=== PATIENT | female | born 1930 | race Caucasian/White ===

== ENCOUNTER 2016-06-02 18:31 | Observation (INO) | payer MEDICARE ==
[~2016-06-02] VITALS: Ht 170.2 cm; Wt 65.0 kg
[~2016-06-02 18:31] MED LIST: ANAS1TAB PO; ASPI325T PO; LABE100T2 PO; SYNT88TA PO; VITA100T5 PO
[2016-06-02 18:33] VITALS: BP 188/80; PULSE 115; RESP 16; TEMP 98.2; O2SAT 97
[2016-06-02] MEDS ORDERED: GABA300C5 PO (19:15)
[2016-06-02] MEDS ORDERED: ZETI10TA5 PO (19:18)
[2016-06-02] MEDS ORDERED: CHEL50TA PO (19:18)
[2016-06-02] MEDS ORDERED: MAGN200T PO (19:18)
[2016-06-02] MEDS ORDERED: UBIQ100C PO (19:18)
[2016-06-02] MEDS ORDERED: MENA1TAB PO (19:18)
--- NOTE | 2016-06-02 19:21 | PD ---
HPI Chief Complaint: Chest Pain Time Seen by Provider: 19:04 Travel History International Travel<30 days: No Contact w/Intl Traveler<30days: No Traveled to known affect area: No History of Present Illness HPI The patient was seen and examined in the presence of the nurse. She complains of chest pain. He's had 3 spells of a sternal area discomfort today. It lasted around 10 minutes and resolved. There were not exertional. Occurred in the center sternum and radiated toward the throat. Currently pain-free. Denies history of cardiac disease. She says she was in the works of planning an outpatient stress test but hasn't happened yet. Denies shortness of breath or fever. Severity was moderate. No alleviating factors. Duration one day PFSH Past Medical History Hx Anticoagulant Therapy: Yes (325 MG ASA ) Asthma: No Blood Disorders: No Heart Rhythm Problems: Yes (A-FIB) Cancer: Yes (S/P BREAST CA , BILAT MASTECTOMY) Cardiovascular Problems: Yes (PVCs) Chemotherapy: Yes (bilateral breast CA ) Chest Pain: No Congestive Heart Failure: No COPD: No Diabetes: No Diminished Hearing: No Endocrine: Yes GERD: Yes Genitourinary: No Hepatitis: No Hiatal Hernia: No Hypertension: Yes Immune Disorder: No Musculoskeletal: Yes (pain at hips, knees) Neurologic: No Psychiatric: No Reproductive: No Respiratory: No Immunizations Current: Yes Radiation Therapy: Yes (1995, 1999) Sleep Apnea: No Thyroid Disease: Yes (HYPO) Menopausal: Yes Past Surgical History AICD: No Endocrine Surgery: No Hysterectomy: No Joint Replacement: No Mastectomy: Yes (bilat) Neurologic Surgery: No Pacemaker: No Thoracic Surgery: Yes (breast surg w/ l. lumpectomy) Tonsillectomy: Yes Other Surgery: Yes (BREAST LUMPECTOMY) Social History Alcohol Use: No Tobacco Use: No Substance Use: No Allergies-Medications (Allergen,Severity, Reaction): Coded Allergies: Adhesives (Unverified Allergy, Severe, 06/02/16) blisters (Verified Allergy, Mild, rash, 06/02/16) Horse Serum Proteins (Verified Allergy, Mild, RASH, 06/02/16) Tizanidine (Verified Allergy, Mild, lazaro, 06/02/16) Phenobarbital (Verified Allergy, Unknown, rash, 06/02/16) NICHO Inhibitors (Unverified Adverse Reaction, Severe, Cough, 06/02/16) Hctz (Unverified Adverse Reaction, Severe, cough, 06/02/16) Buspar (Verified Adverse Reaction, Unknown, Irritability/Anxiety, 06/02/16) Celebrex (Verified Adverse Reaction, Unknown, 06/02/16) Pravachol (Verified Adverse Reaction, Unknown, myalgias, 06/02/16) Simvastatin (Verified Adverse Reaction, Unknown, myalgias, 06/02/16) Trazodone (Verified Adverse Reaction, Unknown, lazaro, 06/02/16) Reported Meds & Prescriptions Reported Meds & Active Scripts Active Reported Zetia (Ezetimibe) 10 Mg Tab 10 Mg PO DAILY Vitamin K2 (Menaquinone-7) 40 Mcg Tab 40 Mg PO DAILY Zinc (Zinc Gluconate) 50 Mg Tab 50 Mg PO DAILY Magnesium 200 Mg Tab 200 Mg PO DAILY Ubiquinol 100 Mg Cap 100 Mg PO DAILY\ Gabapentin 300 Mg Cap 300 Mg PO QHS Anastrozole 1 Mg Tab 1 Mg PO DAILY Vitamin C (Ascorbic Acid) 100 Mg Tab 100 Mg PO Synthroid (Levothyroxine Sodium) 88 Mcg Tab 88 Mcg PO DAILY Labetalol (Labetalol HCl) 100 Mg Tab 100 Mg PO BID Aspirin 325 Mg Tab 325 Mg PO DAILY Review of Systems General / Constitutional: No: Fever Eyes: No: Visual changes HENT: No: Headaches Cardiovascular: Positive: Chest Pain or Discomfort Respiratory: No: Shortness of Breath Gastrointestinal: No: Abdominal Pain Genitourinary: No: Dysuria Musculoskeletal: No: Pain Skin: No Rash Neurologic: No: Weakness Psychiatric: No: Depression Endocrine: No: Polydipsia Hematologic/Lymphatic: No: Easy Bruising Physical Exam Narrative GENERAL: Well-nourished, well-developed patient in no apparent distress. SKIN: Warm and dry. HEAD: Atraumatic. Normocephalic. EYES: Pupils equal and round. No scleral icterus. No injection or drainage. ENT: No nasal bleeding or discharge. Mucous membranes pink and moist. NECK: Trachea midline. No JVD. CARDIOVASCULAR: Regular rate and rhythm. No murmur appreciated. RESPIRATORY: No accessory muscle use. Clear to auscultation. Breath sounds equal bilaterally. GASTROINTESTINAL: Abdomen soft, non-tender, nondistended. Hepatic and splenic margins not palpable. MUSCULOSKELETAL: No obvious deformities. No clubbing. No cyanosis. No edema. NEUROLOGICAL: Awake and alert. No obvious cranial nerve deficits. Motor grossly within normal limits. Normal speech. PSYCHIATRIC: Appropriate mood and affect; insight and judgment normal. Data Data Last Documented VS Vital Signs Date Time Temp Pulse Resp B/P Pulse Ox O2 Delivery O2 Flow Rate FiO2 06/02/16 19:30 99 Room Air 06/02/16 19:30 76 18 177/81 06/02/16 18:33 98.2 Orders Electrocardiogram (06/02/16 ) Basic Metabolic Panel (Bmp) (06/02/16 19:17) Ckmb (Isoenzyme) Profile (06/02/16 19:17) Complete Blood Count With Diff (06/02/16 19:17) Prothrombin Time / Inr (Pt) (06/02/16:17) Act Partial Throm Time (Ptt) (06/02/16 19:17) Troponin I (06/02/16 19:17) Chest, Single Ap (06/02/16 19:17) Ecg Monitoring (06/02/16 19:17) Iv Access Insert/Monitor (06/02/16 19:17) Oximetry (06/02/16 19:17) Sodium Chloride 0.9% Flush (Ns Flush) (06/02/16 19:30) Admit Order (Ed Use Only) (06/02/16 20:36) Labs Laboratory Tests Test 06/02/16 19:25 White Blood Count 5.5 TH/MM3 Red Blood Count 4.03 MIL/MM3 Hemoglobin 12.4 GM/DL Hematocrit 36.9 % Mean Corpuscular Volume 91.6 FL Mean Corpuscular Hemoglobin 30.8 PG Mean Corpuscular Hemoglobin 33.7 % Concent Red Cell Distribution Width 13.7 % Platelet Count 158 TH/MM3 Mean Platelet Volume 9.3 FL Neutrophils (%) (Auto) 57.3 % Lymphocytes (%) (Auto) 29.6 % Monocytes (%) (Auto) 9.8 % Eosinophils (%) (Auto) 2.5 % Basophils (%) (Auto) 0.8 % Neutrophils # (Auto) 3.2 TH/MM3 Lymphocytes # (Auto) 1.6 TH/MM3 Monocytes # (Auto) 0.5 TH/MM3 Eosinophils # (Auto) 0.1 TH/MM3 Basophils # (Auto) 0.0 TH/MM3 CBC Comment DIFF FINAL Differential Comment Prothrombin Time 10.6 SEC Prothromb Time International 1.0 RATIO Ratio Activated Partial 25.7 SEC Thromboplast Time MDM Medical Decision Making Medical Screen Exam Complete: Yes Emergency Medical Condition: Yes Medical Record Reviewed: Yes Differential Diagnosis Differential diagnosis includes OR, angina, pericarditis, pleurisy, GERD, anxiety. Narrative Course I have reviewed the patient's electronic medical record. IV placed I reviewed the EKG which shows sinus rhythm and no acute ST elevation. Ectopy noted I reviewed the chest x-ray which is negative Extended cardiac monitoring shows sinus rhythm with occasional ectopic beat CBC is normal Metabolic profile, CK, troponin have just been recollected and will be another hour. Assuming they come back normal and they will be checked, I'm planning to place her as a 23 hour observation in the chest pain center to rule out cardiac cause of her symptoms. Had aspirin prior to arrival Diagnosis Primary Impression: Chest pain in adult Admitting Information Admitting Physician Requests: Observation Fidel Pak MD Jun 02, 2016 19:21
[2016-06-02 19:30] VITALS: BP 177/81; PULSE 76; RESP 18; O2SAT 99
[2016-06-02] MEDS ORDERED: SODIUM CHLORIDE 0.9% FLUSH 5 ML FLUSH IVF PRN ×2 (19:30→20:45)
--- NOTE | 2016-06-02 19:40 | RADRPT ---
EXAM DATE/TIME: 06/02/2016 19:16 [facility] COMPARISON: No previous studies available for comparison. INDICATIONS : Chest pain and shortness of breath. MEDICAL HISTORY : Hypertension. SURGICAL HISTORY : None. ENCOUNTER: Initial ACUITY: 1 day PAIN SCORE: 5/10 LOCATION: middle chest. FINDINGS: A single view of the chest demonstrates the lungs to be symmetrically aerated without evidence of mas s, infiltrate or effusion. The cardiomediastinal contours are unremarkable. Osseous structures are intact. CONCLUSION: No evidence of acute cardiopulmonary disease. Barrett Barnett MD on June 02, 2016 at 19:38 Board Certified Radiologist. This report was verified electronically.
[2016-06-02 19:44] LABS: AUTOMATED NEUTROPHIL # 3.2 TH/MM3 (1.8-7.7); BASOPHIL % 0.8 % (0.0-2.0); EOSINOPHIL # 0.1 TH/MM3 (0-0.4); EOSINOPHIL % 2.5 % (0.0-4.0); HEMATOCRIT 36.9 % (35.0-46.0); HEMO FLAGS DIFF FINAL; LYMPH % 29.6 % (9.0-44.0); LYMPHOCYTE # 1.6 TH/MM3 (1.0-4.8); MEAN CELL VOLUME 91.6 FL (80.0-100.0); MEAN CORPUSCULAR HEMOGLOBIN 30.8 PG (27.0-34.0); MEAN CORPUSCULAR HGB CONC 33.7 % (32.0-36.0); MONO % 9.8 % (0.0-8.0); NEUT % 57.3 % (16.0-70.0); PLATELET COUNT 158 TH/MM3 (150-450); RED BLOOD COUNT 4.03 MIL/MM3 (4.00-5.30); RED CELL DISTRIBUTION WIDTH 13.7 % (11.6-17.2); WHITE BLOOD COUNT 5.5 TH/MM3 (4.0-11.0)
[2016-06-02 19:57] LABS: APTT (PATIENT) 25.7 SEC (24.3-30.1); PROTHROMBIN TIME - PATIENT 10.6 SEC (9.8-11.6)
[2016-06-02] MEDS ORDERED: ONDANSETRON HCL 4 MG/2 ML VIAL IV PRN (20:45)
[2016-06-02] MEDS: SODIUM CHLORIDE 0.9% FLUSH 5 ML FLUSH IVF SCH (21:00)
[2016-06-02] MEDS: LABETALOL HCL 100 MG TAB PO SCH (21:00)
[2016-06-02 21:11] VITALS: O2SAT 98
[2016-06-02 22:04] VITALS: BP 158/70; PULSE 71; RESP 18
[2016-06-02 22:37] LABS: ANION GAP 8 MEQ/L (5-15); BICARBONATE 27.5 MEQ/L (21.0-32.0); BLOOD UREA NITROGEN 11 MG/DL (7-18); CHLORIDE 108 MEQ/L (98-107); GLOMERULAR FILTRATION RATE 57 ML/MIN (>89); SODIUM (NA) 143 MEQ/L (136-145)
[2016-06-02 22:41] LABS: CREATINE KINASE 70 U/L (26-192); POTASSIUM 3.9 MEQ/L (3.5-5.1)
[2016-06-02 23:00] VITALS: PULSE 72
[2016-06-03 00:01] VITALS: BP 161/62; PULSE 73; RESP 18; TEMP 98; O2SAT 98
[2016-06-03 01:46] LABS: CREATINE KINASE 68 U/L (26-192)
[2016-06-03 03:42] VITALS: PULSE 70
[2016-06-03 04:24] VITALS: BP 153/59; PULSE 76; RESP 18; TEMP 98.7; O2SAT 98
[2016-06-03 08:00] VITALS: BP 155/65; PULSE 73; RESP 17; TEMP 97.3; O2SAT 96
[2016-06-03] MEDS: SODIUM CHLORIDE 0.9% FLUSH 5 ML FLUSH IVF SCH (09:00)
[2016-06-03] MEDS ORDERED: ASPIRIN 325 MG TAB PO SCH (09:00)
[2016-06-03] MEDS: LABETALOL HCL 100 MG TAB PO SCH (11:41)
--- NOTE | 2016-06-03 11:45 | RADRPT ---
EXAM DATE/TIME: 06/03/2016 09:46 [facility] COMPARISON: No previous studies available for comparison. INDICATIONS : Substernal chest pain radiating to the throat. Angina DOSE: 25.8 mCi Tc99m Myoview at stress 8.4 mCi Tc99m Myoview at rest REST HEART RATE: 90 BPM TARGET HEART RATE: 116 BPM MAX HEART RATE: 116 BPM REST BLOOD PRESSURE: 138/70 mmHg MAX BLOOD PRESSURE: 190/64 mmHg EJECTION FRACTION: > 70% MEDICAL HISTORY : Hypertension. Gastroesophageal reflux disease. Carcinoma, breast. SURGICAL HISTORY : Mastectomy, bilateral. Tonsillectomy. ENCOUNTER: Initial ACUITY: 1 day PAIN SCALE: 6/10 LOCATION: Substernal chest TECHNIQUE: The patient underwent upright treadmill exercise in the chest pain center. Continuous ECG tracing wa s monitored during stress. Gated SPECT imaging was performed after stress, and conventional SPECT im aging was performed at rest. The examination was performed on a SPECT/CT scanner, both attenuation-c orrected and non-corrected datasets were reviewed. FINDINGS: DISTRIBUTION: The maximum perfused segment at stress is in the septal wall. PERFUSION STUDY: The pattern of perfusion at stress is within normal limits. GATED STUDY: There is intact wall motion and thickening without hypokinetic or dyskinetic segments. CONCLUSION: 1. Unremarkable myocardial perfusion scan. RISK CATEGORY: Low (<1% Annual Mortality Rate) Art Parker MD on June 03, 2016 at 11:43 Board Certified Radiologist. This report was verified electronically.
[2016-06-03 12:03] VITALS: BP 159/60; PULSE 75; RESP 18; TEMP 98.5; O2SAT 97
--- NOTE | 2016-06-03 12:15 | HHI.DCPOC ---
Discharge Care Plan Diagnosis: (1) Atypical chest pain Goals to Promote Your Health * To prevent worsening of your condition and complications * To maintain your health at the optimal level Directions to Meet Your Goals Take your medications as prescribed Follow your dietary instruction Follow activity as directed Keep your appointments as scheduled Take your immunizations and boosters as scheduled If your symptoms worsen call your PCP, if no PCP go to Urgent Care Center or Emergency Room Smoking is Dangerous to Your Health. Avoid second hand smoke Call the 24-hour hour crisis hotline for domestic abuse at Aliya David Jun 03, 2016 12:14
--- NOTE | 2016-06-03 14:20 | MH ---
cc: YONATHAN REICH MD DATE OF ADMISSION: 06/02/2016 CHIEF COMPLAINT Chest pain HISTORY OF PRESENT ILLNESS This is an 85 year-old patient who presented to the emergency room with an onset of chest pain last evening described as tightness and pain in her substernal area that radiated to her bilateral jaws. The severity was a 6/10, duration was 30 minutes. No associated symptoms. No known precipitating factors or relieving factors. The patient stated after her chest discomfort, she developed heart pounding and felt as though her heart rate was irregular for approximately six hours. The patient says over the past few months, she has had a total of five episodes of this chest tightness and then six hours of irregular heart beat. She follows with Dr. Grace and has been waiting to be scheduled for an outpatient stress test. PAST MEDICAL HISTORY Includes: 1. Atrial fibrillation. This is during her chemotherapy treatments. 2. She has had breast cancer. 3. GERD 4. Hypertension 5. Hypothyroidism 6. Radiation in 1995 and in 1999 PAST SURGICAL HISTORY Bilateral mastectomy SOCIAL HISTORY She is . Lifelong non-smoker. Denies any alcohol or illegal drug use and is very active. PAST CARDIAC TESTING She has not had any recent cardiac testing. 03/31/15, she had an exercise stress test that was negative for ischemia and ejection fraction greater than 70%. She does follow with Dr. Grace and actually seen him on May 24 and has been waiting for an outpatient stress test. ALLERGIES SHE HAS MULTIPLE ALLERGIES INCLUDING NICHO INHIBITORS, BUSPAR, CELEBREX, HYDROCHLOROTHIAZIDE, , PRAVACHOL, SIMVASTATIN, TRAZODONE. CURRENT MEDICATIONS Include: 1. Gabapentin 300 mg q.h.s. 2. Labetalol 100 mg twice a day 3. Zetia 10 mg daily 4. Aspirin 325 mg daily 5. Magnesium 200 mg daily 6. Ubiquinol 100 mg daily 7. Zinc 50 mg daily 8. Levothyroxine 88 mcg daily 9. Vitamin C 100 mg daily 10. Anastrazole 1 mg daily REVIEW OF SYSTEMS GENERAL: She has been in her general state of health with no recent illness, fevers chills or recent travel. HEAD, EYES, EARS, NOSE, AND THROAT: No headache or dysphagia. CARDIOVASCULAR: As stated above. No intermittent leg pain or dizziness. RESPIRATORY: No shortness of breath, cough, wheeze, hemoptysis or recent upper respiratory infection. ABDOMEN: No bowel changes, diarrhea, constipation, pain, distention, blood in the stool, dark stool, nausea or vomiting. Reports a good appetite. : No dysuria. EXTREMITIES: No lower leg edema. MUSCULOSKELETAL: No change in ROM. NEUROLOGIC: No difficulties with balance, motor or sensory deficits. PSYCH: No anxiety or depression. She states she had some situational stress, her had some recent medical issues. PHYSICAL EXAM VITAL SIGNS: Temperature is 98.5, pulse 75, respiratory rate 18, blood pressure 159/60, pulse oximetry 97% on room air. GENERAL: She is alert, well-developed, well-nourished in no acute distress pleasant female who appears younger than her stated age. HEAD, EYES, EARS, NOSE, AND THROAT: Head is normocephalic, atraumatic. Eyes, pupils are equal and round. sclerae is clear. ENT, mucous membranes are pink and moist. NECK: Supple. Trachea is midline. CARDIOVASCULAR: She has a regular rate and rhythm without murmur, rub or gallop. No JVD. S1, S2. No S3. No S4. She does have bilateral carotid bruits. RESPIRATORY: Clear lungs throughout bilaterally with no crackles, wheezes or rhonchi, nonlabored. Speaking in full sentences. Symmetrical chest rise. ABDOMEN: Soft, nontender and nondistended with positive bowel tones. EXTREMITIES: Pulses +2 times four. There is no dependent edema appreciated. NEUROLOGIC: CN II through XII grossly intact. Strength 5/5. Gait is within normal limits. PSYCH: She is alert and oriented times three with a pleasant affect, appropriate mood, insight and judgment. SKIN: Normal turgor, normal texture, warm and dry. LABORATORY DATA CBC is unremarkable. Chemistries also unremarkable. Three sets of cardiac enzymes are negative. Coagulation is unremarkable. Chest x-ray read by the radiologist has a conclusion of no evidence of acute cardiopulmonary disease. Three EKG's show a normal sinus rhythm with a left axis deviation. ASSESSMENT AND PLAN 1. Chest pain. The patient has been admitted to the chest pain center and was ruled out with three sets of EKG's, cardiac Enzymes and was seen and evaluated by Dr. Yonathan Reich. Dr. Sin Mayfield who is covering for Dr. Grace has been notified of patient's arrival and agrees to completing a nuclear stress test while in the chest pain center. Naturally if her stress test is unremarkable, she will be encouraged to follow up with her cnc service technician, Dr. Grace and her primary care physician, Dr. Nolan. She is agreeable to this plan of care. 2. Situational stress. With this patient, the likelihood is she is experiencing situational stress. She may want to speak with Dr. Nolan regarding this as it could be a cause of her intermittent chest pain and intermittent high blood pressure as she knows when these chest pains begin. Dictated by OSMANY Middleton Per Shukla /12:38 PM /2:18 PM
--- NOTE | 2016-06-03 15:57 | TR ---
Date Performed: 06/03/2016 Time Performed: 10:42:04 DOCTOR: Sola Domínguez DRUG LIST: CLINICAL HISTORY: REASON FOR TEST: REASON FOR ENDING: OBSERVATION: CONCLUSION: Hiren protocol completed. Stopped sec to reaching target heart rate and leg fatigue. Maximum OG=333 Target HR Achieved=85.0 Total Exercise Time=3:32 Max bp 190/64. No reprod chest pain/ discomfort. Occassional PVC. Hypertensive bp response. Recovery quick and unremarkable. Nuclear image s pending. COMMENTS:
--- NOTE | 2016-06-03 15:59 | EKG ---
Date Performed: 06/03/2016 Time Performed: 01:24:05 PTAGE: 85 years EKG: Sinus rhythm BORDERLINE LEFT AXIS DEVIATION LEFT VENTRICULAR HYPERTROPHY AND ST-T CHANGE ABNORMAL ECG Since PREVIOUS TRACING , no significant change noted PREVIOUS TRACIN06/02/2016 22.09 DOCTOR: Sola Domínguez Interpretating Date/Time 06/03/2016 15:58:37
--- NOTE | 2016-06-03 16:01 | EKG ---
Date Performed: 06/02/2016 Time Performed: 22:09:38 PTAGE: 85 years EKG: Sinus rhythm BORDERLINE LEFT AXIS DEVIATION MODERATE VOLTAGE CRITERIA FOR LVH, CONSIDER NORMAL VARIANT NONSPECIFI C ST & T-WAVE ABNORMALITY BORDERLINE ECG Since PREVIOUS TRACING , no significant change noted PREVIOUS TRACIN06/02/2016 19.05 DOCTOR: Sola Domínguez Interpretating Date/Time 06/03/2016 15:59:51
--- NOTE | 2016-06-03 16:02 | EKG ---
Date Performed: 06/02/2016 Time Performed: 19:05:17 PTAGE: 85 years EKG: Sinus rhythm WITH OCCASIONAL ECTOPIC PREMATURE COMPLEXES POSSIBLE LEFT ATRIAL ENLARGEMENT INCOMPLETE RIGHT BUNDLE BRANCH BLOCK POSSIBLE LEFT VENTRICULAR HYPERTROPHY POSSIBLE SEPTAL MYOCARDIAL INFARCTION ABNORMAL EC G Since PREVIOUS TRACING , no significant change noted PREVIOUS TRACIN05/06/2016 11.23 DOCTOR: Sola Domínguez Interpretating Date/Time 06/03/2016 16:01:24
== END 2016-06-03 14:47 | disposition home or self-care (01) ==
LOC: NEPA 18:31 → NEDA 20:37 → NEPGCP 23:23
PROVIDERS: ADMIT Internal Medicine Interventional Cardiology; ATTEND Internal Medicine Interventional Cardiology
DX: R07.9 Chest pain, unspecified (principal); Z79.82 Long term (current) use of aspirin; I48.91 Unspecified atrial fibrillation; Z85.3 Personal history of malignant neoplasm of breast; Z90.13 Acquired absence of bilateral breasts and nipples; I49.3 Ventricular premature depolarization; K21.9 Gastro-esophageal reflux disease without esophagitis; I10 Essential (primary) hypertension; Z79.899 Other long term (current) drug therapy; E03.9 Hypothyroidism, unspecified; Z92.3 Personal history of irradiation
CPT/HCPCS: 71010; 78452; 80048; 82550; 84484; 85025; 85610; 85730; 93005; 93017; 99285; A9502; G0378

== ENCOUNTER 2016-06-13 06:26 | Day surgery (SDC) | payer MEDICARE ==
[~2016-06-13] VITALS: Ht 167.6 cm; Wt 62.1 kg
[~2016-06-13 06:26] MED LIST changes: +CHEL50TA PO; +GABA300C5 PO; +MAGN200T PO; +MENA1TAB PO; +UBIQ100C PO; +ZETI10TA5 PO
[2016-06-13 07:37] VITALS: BP 190/92; PULSE 69; RESP 18; TEMP 97.7; O2SAT 100
[2016-06-13] MEDS ORDERED: CYCL1TAB29 PO (07:37)
[2016-06-13] MEDS ORDERED: CALC500T35 PO (07:37)
[2016-06-13] MEDS ORDERED: VITA400T PO (07:37)
[2016-06-13] MEDS ORDERED: HYDR-3580 PO (07:37)
[2016-06-13] MEDS ORDERED: DICY10CA12 PO (07:37)
[2016-06-13] MEDS ORDERED: COEN400C PO (07:37)
[2016-06-13] MEDS ORDERED: VITATAB11 PO (07:37)
[2016-06-13] MEDS ORDERED: IODIXANOL 320 MG/ML 100 ML VIAL (for Cath Lab) OTHER ONE (08:08)
[2016-06-13] MEDS ORDERED: MIDAZOLAM HCL 2 MG/2 ML VIAL ONE (08:19)
[2016-06-13] MEDS ORDERED: HEPARIN-NS/PF INJ 500 ML ONE ×2 (08:19→09:06)
[2016-06-13] MEDS ORDERED: HEPARIN SODIUM - IV 10,000 UNITS/10 ML VIAL ONE (08:52)
[2016-06-13] MEDS ORDERED: CLOPIDOGREL 300 MG TAB ONE (09:10)
[2016-06-13] MEDS ORDERED: ASPIRIN 81 MG CHEW TAB ONE (09:37)
[2016-06-13] MEDS ORDERED: ASPIRIN 81 MG CHEW TAB PO ONE (11:15)
--- NOTE | 2016-06-13 12:28 | MA ---
cc: TITO SALAS MD DATE: 06/13/2016 PROCEDURE Cardiac catheterization. PROCEDURAL STATEMENTS The patient was prepped and draped in the usual fashion. A 6 sheath was inserted percutaneously in the right femoral artery. Coronary angiography was done with Christina preformed catheters. Left ventriculography was not done. RESULTS HEMODYNAMICS Aortic pressure was 160/60. ANGIOGRAPHY The left main coronary was normal. The left anterior descending artery was very small and diffusely diseased throughout its course. There was an area of discrete narrowing of approximately 70-75% in the proximal portion. This artery, however, was very small and appeared to be less than 2 mm in caliber. The left circumflex artery arose from left main and gave off one large obtuse marginal branch. There were no significant stenoses noted. The right coronary was anatomically dominant. A 75% stenosis was present in the midportion of the artery with a second 95% stenosis just proximal to the crux. The distal portion of the right coronary was free from disease. INTERVENTION It was felt that the right coronary was the likely culprit lesion and it was felt that the anterior descending artery was probably too small to properly intervene on. An FR4 guide was positioned in place in the right coronary after heparin administration with an ACT of 280 seconds. A Chef wire was advanced to the distal right coronary. Primary stenting of the distal lesion was carried out with a 3.0 x 8 mm bare metal stent to 12 atmospheres. This resulted in a good cosmetic result with 0 residual. KYLE-III flow was present pre and post procedure. The catheter was withdrawn. A second 3.0 x 8 mm bare metal stent was positioned across the 75% stenosis again dilated to 12 atmospheres again with an excellent cosmetic result. KYLE-III flow was present pre and post procedure with zero residual. The equipment was then withdrawn and hemostasis was achieved with Angio-Seal technique. The patient left the laboratory in good condition. CONCLUSIONS It is anticipated that if she continues to have angina, consideration for angioplasty of the LAD could be given; however, it does appear to be a very small artery and hopefully medical therapy will be adequate to control the patient's symptoms. MD MAREK Zambrano/JERRICA /9:32 AM /12:18 PM
== END 2016-06-13 14:14 | disposition home or self-care (01) ==
LOC: HDIC 06:26 → HDOC 06:26
PROVIDERS: ATTEND Internal Medicine Cardiovascular Disease
DX: I25.110 Atherosclerotic heart disease of native coronary artery with unstable angina pectoris (principal); I48.91 Unspecified atrial fibrillation; I10 Essential (primary) hypertension; E78.5 Hyperlipidemia, unspecified; Z79.82 Long term (current) use of aspirin
CPT/HCPCS: 85002; 92928; 93454; C1769; C1876; C1887; C1893; J1644; J2250; Q9967

== ENCOUNTER → 2016-12-12 | Outpatient (CLI) | payer MEDICARE ==
[~2016-12-12] VITALS: Ht 167.6 cm; Wt 62.4 kg
[~2016-12-12] MED LIST changes: +ASCO500T PO; +ASPI81CH CHEW; +CALC500T35 PO; +CHLORHEXIDINE GLUCONATE 2 % 1 PACK (2 CLOTHS) TOPICAL PRN; +COEN400C PO; +CYCL1TAB29 PO; +DICY10CA12 PO; +HYDR-3580 PO; +INSULIN HUMAN REGULAR 1,000 UNITS/10 ML VIAL SQ PRN; +LACTATED RINGER'S 1000 ML IV PRN; +LEVO100T5 PO; +LORA-520 PO; -MENA1TAB PO; +METOPROLOL TARTRATE 25 MG TAB PO PRN; +PLAV75TA29 PO; +POVIDONE IODINE 5% (ANTISEPSIS KIT) 4 APPLICATIONS EACH NARE PRN; +PROP225T PO; +PROPOFOL 200 MG/20 ML AMP IV ONE; +RANI150T PO; +SODIUM CHLORID 0.9% 500 ML IV PRN; -UBIQ100C PO; +VITA1000 PO; +VITA400T PO; +VITATAB11 PO
[2016-12-12 09:00] LABS: AUTOMATED NEUTROPHIL # 2.5 TH/MM3 (1.8-7.7); BASOPHIL % 1.2 % (0.0-2.0); EOSINOPHIL # 0.1 TH/MM3 (0-0.4); EOSINOPHIL % 2.9 % (0.0-4.0); HEMATOCRIT 28.7 % (35.0-46.0); HEMO FLAGS DIFF FINAL; LYMPH % 22.8 % (9.0-44.0); LYMPHOCYTE # 0.9 TH/MM3 (1.0-4.8); MEAN CELL VOLUME 88.5 FL (80.0-100.0); MEAN CORPUSCULAR HGB CONC 31.6 % (32.0-36.0); MONO % 10.5 % (0.0-8.0); NEUT % 62.6 % (16.0-70.0); PLATELET COUNT 222 TH/MM3 (150-450); RED BLOOD COUNT 3.25 MIL/MM3 (4.00-5.30); RED CELL DISTRIBUTION WIDTH 15.7 % (11.6-17.2)
[2016-12-12 09:15] VITALS: BP 132/58; PULSE 78; RESP 20; TEMP 98.1; O2SAT 98
[2016-12-12 11:57] VITALS: TEMP 97.8
--- NOTE | 2016-12-12 11:59 | GIPROC ---
[facility] [address] [facility]. [facility], [address] COLONOSCOPY PROCEDURE REPORT EXAM DATE: 12/12/2016 PATIENT NAME: Melanie Franklin MR #: [id number] BIRTHDATE: 1930 ENDOSCOPIST: Gabi Isaac MD ORDER #: [id number] ACCOUNT GROUP SUPERVISOR: Janey Martínez and Jany Jordan STATUS: outpatient INDICATIONS: The patient is a 86 yr old female here for a colonoscopy due to anemia, gi bleeding PROCEDURE PERFORMED: Colonoscopy, diagnostic MEDICATIONS: None and Per Anesthesia. PREP QUALITY: fair PREP TYPE:Other: ESTIMATED BLOOD LOSS: None CONSENT: The patient understands the risks and benefits of the procedure and understands that these risks include, but are not limited to: sedation, allergic reaction, infection, perforation and/or bleeding. Alternative means of evaluation and treatment include, among others: physical exam, x-rays, and/or surgical intervention. The patient elects to proceed with this endoscopic procedure. medical equipment was checked for proper function. Hand hygiene and appropriate measures for infection prevention was taken. After the risks, benefits and alternatives of the procedure were thoroughly explained, Informed consent was verified, confirmed and timeout was successfully executed by the treatment team. A digital exam revealed external hemorrhoids The Pentax EC-[id number] endoscope was introduced through the anus and advanced to the cecum, which was identified by both the appendix and ileocecal valve. The instrument was then slowly withdrawn as the colon was fully examined. COLON FINDINGS: Diverticulosis internal, externnal hemorrhoids. Retroflexed views revealed internal hemorrhoids and Retroflexed views revealed medium internal hemorrhoids The scope was then completely withdrawn from the patient and the procedure terminated. PROCEDURE WITHDRAWAL TIME:6minutes ADVERSE EVENTS: There were no complications. IMPRESSIONS: 1. Diverticulosis internal, externnal hemorrhoids 2. Retroflexed views revealed internal hemorrhoids 3. Retroflexed views revealed medium internal hemorrhoids 4. Revealed external hemorrhoids RECOMMENDATIONS: 1. Benefiber 2 tsp daily 2. Probiotics from any [employer] or health food store 3. Yearly rectal exams 4. High fiber diet 5. Proctozone cream capsule endoscopy RECALL: 1. NONE 2. Return 5 years Colonoscopy Gabi Isaac MD eSigned: Gabi Isaac MD 12/12/2016 11:58 AM cc: Matteo Nolan M.D.
--- NOTE | 2016-12-12 12:01 | GIPROC ---
[facility] [address] [facility]. [facility], [address] EGD PROCEDURE REPORT EXAM DATE: 12/12/2016 PATIENT NAME: Melanie Franklin MR #: [id number] BIRTHDATE: 1930 ATTENDING: Gabi Isaac MD ORDER #: [id number] [employer] LANG[employer]AGE INTERPRETER: Janey Martínez and Jany Jordan STATUS: outpatient INDICATIONS: The patient is a 86 yr old female here for an EGD due to anemia , melena PROCEDURE PERFORMED: EGD w/ biopsy MEDICATIONS: None and Per Anesthesia. TOPICAL ANESTHETIC: none CONSENT: The patient understands the risks and benefits of the procedure and understands that these risks include, but are not limited to: sedation, allergic reaction, infection, perforation and/or bleeding. Alternative means of evaluation and treatment include, among others: physical exam, x-rays, and/or surgical intervention. The patient elects to proceed with this endoscopic procedure. medical equipment was checked for proper function. Hand hygiene and appropriate measures for infection prevention was taken. After the risks, benefits and alternatives of the procedure were thoroughly explained, Informed consent was verified, confirmed and timeout was successfully executed by the treatment team. The patient was anesthetized with topical anesthesia and the EC-[id number] (Pedi C) endoscope was introduced through the mouth and advanced to the second portion of the duodenum. Retroflexed views revealed a hiatal hernia The gastroscope was then slowly withdrawn and removed. Gastritis antrum-biopsy. ADVERSE EVENTS: There were no complications. IMPRESSIONS: 1. Gastritis antrum-biopsy 2. Retroflexed views revealed a hiatal hernia RECOMMENDATIONS: 1. Await biopsy results. Biopsy results will not be ready for 7-10 days. If you don't hear from us in two weeks, call our office for biopsy results. 2. Anti-reflux regimen 3. Ppi capsule endoscopy cbc in 3 days 4. Await biopsy results. Biopsy results will not be ready for 7-10 days. If you don't hear from us in two weeks, call our office for biopsy results. 5. Anti-reflux regimen 6. Continue PPI PATIENT CONDITION: stable DISPOSITION: Inpatient REPEAT EXAM: EGD pending biopsy results Gabi Isaac MD eSigned: Gabi Isaac MD 12/12/2016 12:01 PM cc: Matteo Nolan M.D. PATIENT NAME: Melanie Franklin MR#: [id number]
[2016-12-12 12:16] VITALS: BP 131/59; PULSE 79; RESP 18; O2SAT 95
--- NOTE | 2016-12-12 15:41 | EKG ---
Date Performed: 12/12/2016 Time Performed: 09:33:03 PTAGE: 86 years EKG: Sinus rhythm MINIMAL VOLTAGE CRITERIA FOR LVH, CONSIDER NORMAL VARIANT ST DEVIATION AND MODERATE T-WAVE ABNORMALI TY, CONSIDER LATERAL ISCHEMIA ABNORMAL ECG PREVIOUS TRACING : 06/03/2016 01.24 Compared to previous tracing, lateral ST changes are more p rominent, consider ischemia. DOCTOR: Trenton Beckett Interpretating Date/Time 12/12/2016 15:41:26
== END ==
LOC: HEND 07:52
PROVIDERS: ATTEND Internal Medicine Gastroenterology
DX: D64.9 Anemia, unspecified (principal); K57.90 Diverticulosis of intestine, part unspecified, without perforation or abscess without bleeding; K64.4 Residual hemorrhoidal skin tags; K64.8 Other hemorrhoids; K92.1 Melena; K44.9 Diaphragmatic hernia without obstruction or gangrene; K29.70 Gastritis, unspecified, without bleeding; R94.31 Abnormal electrocardiogram [ECG] [EKG]
CPT/HCPCS: 85025; 86850; 86900; 86901; 88305; 88312; 93005

== ENCOUNTER 2017-12-24 20:11 | Inpatient (IN) ==
--- NOTE | 2017-12-24 20:44 | ED ---
HPI General Chief Complaint: Syncope Stated Complaint: weakness/evac Time Seen by Provider: 12/24/17 20:20 Source: patient Mode of arrival: EMS Limitations: no limitations History of Present Illness HPI narrative: The patient is an 87 year old female who presents to the [facility] emergency department with a history of reportedly having dizziness that began approximately 45 minutes prior to ambulance services being called out to her home. The patient had a witnessed episode of a few seconds of syncope while ambulance services were at her side and she was on a monitor. Initially they reported that when they arrived she was in a sinus rhythm in the 80s. They have a strip to confirm this. The patient reports that she does have a history of paroxysmal atrial fibrillation and was actually an RVR earlier today. Her advanced research programs director is Dr. Schwartz. She reports that 2 weeks ago she was started on a new medication, sotalol. While she continued to be monitored by ambulance services the patient was noted to go into A. fib with RVR with a heart rate that maxed out at 136, quickly thereafter the patient became bradycardic and had a syncopal event that lasted for a few seconds. The patient had no loss of bowel or bladder control. The patient had no tongue biting or generalized clonic tonic seizure activity. The patient was placed flat by ambulance services and pacer pads were applied. The patient was started on normal saline IV fluids and given in total approximately 360 mL of normal saline. The patient's blood sugar was noted to be 122 prior to arrival. The patient arrives awake and alert. She denies having any known recent fevers. She denies having any cough or congestion. She denies having any chest pain, chest pressure, or shortness of breath. She reports that since yesterday she has had some new lower extremity edema that improves with elevating her legs. Otherwise on review of systems, she denies having any neck pain, abdominal pain, vomiting, diarrhea, urinary symptoms, one-sided weakness, facial droop, difficulty with word finding ability, vertigo, or vision changes. Related Data Home Medications Medication Instructions Recorded Confirmed amlodipine 5 mg PO DAILY 12/24/17 12/25/17 anastrozole 1 mg PO DAILY 12/24/17 12/25/17 magnesium mg PO DAILY 12/24/17 rivaroxaban [Xarelto] 20 mg PO DAILY 12/24/17 12/25/17 sotalol PO Q12H 12/24/17 Zinc Plus 12/25/17 12/25/17 ezetimibe [Zetia] PO DAILY 12/25/17 thyroid (pork) [[place]ina Thyroid] 60 mg PO DAILY 12/25/17 12/25/17 Allergies Allergy/AdvReac Type Severity Reaction Status Date / Time adhesive Allergy Severe JITTERY Unverified 12/24/17 20:29 amlodipine Allergy Severe JITTERY Unverified 12/24/17 20:29 atorvastatin Allergy Severe JITTERY Unverified 12/24/17 20:29 diltiazem Allergy Severe JITTERY Unverified 12/24/17 20:29 isradipine Allergy Severe JITTERY Unverified 12/24/17 20:29 nicardipine Allergy Severe JITTERY Unverified 12/24/17 20:29 nifedipine Allergy Severe JITTERY Unverified 12/24/17 20:29 nimodipine Allergy Severe JITTERY Unverified 12/24/17 20:29 verapamil Allergy Severe JITTERY Unverified 12/24/17 20:29 bupropion Allergy Intermediate JITTERY Unverified 12/24/17 20:29 atropine Allergy Mild rash Unverified 12/24/17 20:29 Horse/Equine Containing Allergy Mild RASH Unverified 12/24/17 20:29 Products hyoscyamine Allergy Mild rash Unverified 12/24/17 20:29 scopolamine Allergy Mild rash Unverified 12/24/17 20:29 tizanidine Allergy Mild lazaro Unverified 12/24/17 20:29 phenobarbital Allergy Unknown rash Unverified 12/24/17 20:29 benazepril AdvReac Severe Cough Unverified 12/24/17 20:29 captopril AdvReac Severe Cough Unverified 12/24/17 20:29 enalaprilat AdvReac Severe Cough Unverified 12/24/17 20:29 fosinopril AdvReac Severe Cough Unverified 12/24/17 20:29 hydrochlorothiazide AdvReac Severe cough Unverified 12/24/17 20:29 lisinopril AdvReac Severe Cough Unverified 12/24/17 20:29 quinapril AdvReac Severe Cough Unverified 12/24/17 20:29 buspirone AdvReac Unknown Irritabilit Unverified 12/24/17 20:29 y/Anxiety celecoxib AdvReac Unknown JITTERY Unverified 12/24/17 20:29 pravastatin AdvReac Unknown myalgias Unverified 12/24/17 20:29 simvastatin AdvReac Unknown myalgias Unverified 12/24/17 20:29 trazodone AdvReac Unknown lazaro Unverified 12/24/17 20:29 BELLADONNA ALKALOIDS Allergy Severe JITTERY Uncoded 12/24/17 20:29 Review of Systems ROS: all other systems reviewed are negative (Except for that which was mentioned in HPI) [facility] Medical History Medical History A-fib (Acute) Breast CA (Acute) High cholesterol (Acute) Hypertension (Acute) Hypothyroid (Acute) Surgical History Surgical History H/O bilateral mastectomy (Acute) Hx of tonsillectomy (Acute) Social History Social History Substance History: No History of Abuse Second Hand Smoke Exposure: No Smoking Status: Former smoker How Often Do You Have a Drink Containing Alcohol: Never Immunization History Tetanus Immunization: Unsure Hx Influenza Vaccine This Season: No Exam Const General: cooperative, no acute distress, well developed and in distress Nutritional Appearance: well nourished Orientation: alert, awake and oriented x3 HENMT Head: normocephalic and atraumatic Nose: no nasal discharge and no epistaxis Mouth: moist mucous membranes Throat: posterior oropharynx normal and uvula midline Eyes Sclera: normal sclerae Pupils: PERRL Neck Neck: no meningeal signs, trachea midline and no JVD Resp Effort & Inspection: no use of accessory muscles Auscultation: clear to auscultation bilaterally Cardio Rate: regular rate Rhythm: regular rhythm Heart Sounds: no murmurs GI Inspection: non-distended Palpation: soft, no hepatosplenomegaly and nontender Auscultation: normal bowel sounds Back/Spine/Pelvis Back: no CVA tenderness Skin General: dry skin (warm) Neuro General: alert, awake and oriented x3 Cranial Nerves: other Speech: speech normal Motor: strength 5/5 throughout and no movement abnormalities noted Sensory Exam: no sensory deficits noted Extrem General: normal to inspection (No calf tenderness on palpation. Negative Homans sign. No palpable cords. 2+ pulses in all 4 extremities.), no clubbing , no cyanosis and edema (Trace pedal edema bilaterally.) Laterality: bilaterally Psych Mood: congruent mood Affect: normal affect Judgment: judgment good Course Consultations Consultation #1: The patient's case including history, pertinent physical examination findings, and laboratory studies were discussed with Dr. Carter. It was agreed that the patient would be admitted to the [facility] hospitalist service. Initial Documented Vital Signs Temperature 98.7 F 12/24/17 20:16 Pulse Rate 78 12/24/17 20:16 Respiratory Rate 16 12/24/17 20:16 Blood Pressure 194/80 H 12/24/17 20:16 Pulse Oximetry 100 12/24/17 20:16 Last Documented Vital Signs Temperature 98.4 F 12/26/17 02:05 Pulse Rate 82 12/26/17 03:00 Respiratory Rate 18 12/26/17 02:05 Blood Pressure 136/54 L 12/26/17 02:05 Pulse Oximetry 97 12/26/17 02:05 Medical Decision Making MDM Narrative Medical decision making narrative: During the course of the patient's emergency department visit, the patient's history, examination, and differential diagnosis were reviewed with the patient. The patient was placed on a cardiac monitor technician with oximetry and frequent blood pressure monitoring. The patient had IV access obtained and blood work sent for analysis. Diagnostic evaluation was started regarding this patient's irregular heartbeat including syncope with witnessed bradycardia. The patient's diagnostic evaluation is remarkable for a white count of 9.4, platelets 269, monocytes 13.8, hemoglobin 12.The patient's PT is 14.3, INR 1.4, PTT 38.3. Chemistry is remarkable for a troponin I of less than 0.02, GFR of 57 , chloride of 108, BNP is 164. Magnesium is 2. The patient's chest x-ray revealed no acute abnormality. The patient has remained stable during her emergency department evaluation. The patient will be admitted to the hospital for syncope with symptomatic bradycardia. The patient's results were discussed with the patient, including the plan of care. I explained that further testing and/ or monitoring is indicated based on the patient's history, examination, and/ or laboratory findings. Therefore, I recommended admission for additional evaluation. The patient expressed understanding and was agreeable with this plan. The patient was admitted to the hospital in guarded condition and sent to a bed under the care of [facility] hospitalist service. Differential Diagnosis Differential Diagnosis: Electrolyte derangements causing cardiac arrhythmia, versus sick sinus syndrome, versus heart block, versus acute coronary syndrome Medical Records Medical records reviewed: Yes I reviewed the patient's medical records. Lab Data Lab results reviewed: Yes I reviewed the patient's lab results. Result diagrams: 12/24/17 20:30 12/24/17 21:25 Lab Results 12/24/17 12/24/17 12/24/17 Range/Units 20:30 20:30 20:30 WBC 9.4 (4.0-11.0) th/mm3 RBC 3.89 L (4.00-5.30) mil/mm3 Hgb 12.0 (11.6-15.3) gm/dL Hct 36.6 (35.0-46.0) % MCV 93.9 (80.0-100.0) fL MCH 30.8 (27.0-34.0) pg MCHC 32.7 (32.0-36.0) % RDW 14.5 (11.6-17.2) % Plt Count 269 (150-450) th/mm3 MPV 9.9 (7.0-11.0) fL Prelim Diff (Auto) Slide review pending Neut % (Auto) 51.0 (16.0-70.0) % Lymph % (Auto) 30.9 (9.0-44.0) % [place] % (Auto) 13.8 H (0.0-8.0) % Eos % (Auto) 3.7 (0.0-4.0) % Baso % (Auto) 0.6 (0.0-2.0) % Neut # (Auto) 4.8 (1.8-7.7) th/mm3 Lymph # (Auto) 2.9 (1.0-4.8) th/mm3 [place] # (Auto) 1.3 H (0.0-0.9) th/mm3 Eos # (Auto) 0.4 (0.0-0.4) th/mm3 Baso # (Auto) 0.1 (0.0-0.2) th/mm3 WBC Differential . Diff Scan Auto diff confirmed Differential Comment . PT 14.3 H (9.8-11.6) sec INR 1.4 Ratio APTT 38.3 H (24.3-30.1) sec Sodium (136-145) meq/L Potassium (3.5-5.1) meq/L Chloride (98-107) meq/L Carbon Dioxide (21.0-32.0) meq/L Anion Gap (5-15) meq/L BUN (7-18) mg/dL Creatinine (0.50-1.00) mg/dL Estimated GFR (>89) mL/min Random Glucose (74-106) mg/dL Calcium (8.5-10.1) mg/dL Magnesium (1.5-2.5) mg/dL Total Bilirubin (0.2-1.0) mg/dL AST (15-37) U/L ALT (10-53) U/L Alkaline Phosphatase (45-117) U/L Total Creatine Kinase (26-192) U/L Troponin I (0.02-0.05) ng/mL B-Natriuretic Peptide 164 H (0-100) pg/mL Total Protein (6.4-8.2) g/dL Albumin (3.4-5.0) g/dL TSH (0.358-3.740) uIU/mL 12/24/17 Range/Units 21:25 WBC (4.0-11.0) th/mm3 RBC (4.00-5.30) mil/mm3 Hgb (11.6-15.3) gm/dL Hct (35.0-46.0) % MCV (80.0-100.0) fL MCH (27.0-34.0) pg MCHC (32.0-36.0) % RDW (11.6-17.2) % Plt Count (150-450) th/mm3 MPV (7.0-11.0) fL Prelim Diff (Auto) Neut % (Auto) (16.0-70.0) % Lymph % (Auto) (9.0-44.0) % [place] % (Auto) (0.0-8.0) % Eos % (Auto) (0.0-4.0) % Baso % (Auto) (0.0-2.0) % Neut # (Auto) (1.8-7.7) th/mm3 Lymph # (Auto) (1.0-4.8) th/mm3 [place] # (Auto) (0.0-0.9) th/mm3 Eos # (Auto) (0.0-0.4) th/mm3 Baso # (Auto) (0.0-0.2) th/mm3 WBC Differential Diff Scan Differential Comment PT (9.8-11.6) sec INR Ratio APTT (24.3-30.1) sec Sodium 143 (136-145) meq/L Potassium 3.9 (3.5-5.1) meq/L Chloride 108 H (98-107) meq/L Carbon Dioxide 27.0 (21.0-32.0) meq/L Anion Gap 8 (5-15) meq/L BUN 16 (7-18) mg/dL Creatinine 0.95 (0.50-1.00) mg/dL Estimated GFR 56 L (>89) mL/min Random Glucose 99 (74-106) mg/dL Calcium 8.8 (8.5-10.1) mg/dL Magnesium 2.0 (1.5-2.5) mg/dL Total Bilirubin 0.2 (0.2-1.0) mg/dL AST 22 (15-37) U/L ALT 22 (10-53) U/L Alkaline Phosphatase 64 (45-117) U/L Total Creatine Kinase 56 (26-192) U/L Troponin I Less than 0.02 L (0.02-0.05) ng/mL B-Natriuretic Peptide (0-100) pg/mL Total Protein 6.6 (6.4-8.2) g/dL Albumin 3.5 (3.4-5.0) g/dL TSH 3.570 (0.358-3.740) uIU/mL Imaging Data Radiologist's impression: Chest X-Ray 12/24/17 20:20 CONCLUSION: 1. No acute abnormality or significant interval change. ECG Data Attestation: I personally reviewed and interpreted this ECG as follows: Interpretation: The patient had a EKG done on arrival. The patient's EKG shows a sinus rhythm heart rate of 81, QRS duration is 90 ms, QTC [address] segment elevation is noted. T waves are inverted in V5, V6. Discharge Plan Discharge Disposition Patient Disposition: 30 Still Patient Discharge Details Diagnosis: Syncope, Bradycardia Physicians Team ED Provider: Serenity Hampton Primary Care Provider: Matteo Nolan Attending Provider: Gopi Fong Other Providers: Timothy Schwartz Discharge Interventions Interventions: ED Discharge Assessment Last Done: 12/25/17 00:19 Vital Signs Last Done: 12/25/17 09:00 Status ED Status: Left Department Discharge Information Discharge Date/Time: 12/25/17 00:21
--- NOTE | 2017-12-24 20:49 | XR ---
EXAM DATE: 12/24/2017 8:46 PM EDT AGE/SEX: 87 years / Female INDICATIONS: Chest pain. Passed out tonight. CLINICAL DATA: This is the patient's initial encounter. Patient reports that signs and symptoms have been present for 1 day and indicates a pain score of 0/10. MEDICAL/SURGICAL HISTORY: . Hypertension. Gastroesophageal reflux disease. Carcinoma, breast. . Mastectomy, bilateral. Tonsillectomy. [place] [facility] [place]. . FINDINGS: No new focal pleural or parenchymal opacities. The cardiomediastinal contours are unremarkable. Osse ous structures are intact. CONCLUSION: 1. No acute abnormality or significant interval change. Electronically signed by: Jaya Sheriff MD 12/24/2017 8:48 PM EDT
[2017-12-24 20:52] LABS: Baso # (Auto) 0.1 th/mm3 (0.0-0.2); Baso % (Auto) 0.6 % (0.0-2.0); Eos # (Auto) 0.4 th/mm3 (0.0-0.4); Eos % (Auto) 3.7 % (0.0-4.0); Hematocrit 36.6 % (35.0-46.0); Lymph # (Auto) 2.9 th/mm3 (1.0-4.8); Lymph % (Auto) 30.9 % (9.0-44.0); Mean Corpuscular HGB Conc 32.7 % (32.0-36.0); Mean Corpuscular Hemoglobin 30.8 pg (27.0-34.0); Mean Corpuscular Volume 93.9 fL (80.0-100.0); Mean Platelet Volume 9.9 fL (7.0-11.0); Mono # (Auto) 1.3 th/mm3 (0.0-0.9); Mono % (Auto) 13.8 % (0.0-8.0); Neut # (Auto) 4.8 th/mm3 (1.8-7.7); Platelet Count 269 th/mm3 (150-450); Red Blood Count 3.89 mil/mm3 (4.00-5.30); Red Cell Distribution Width 14.5 % (11.6-17.2); White Blood Count 9.4 th/mm3 (4.0-11.0)
[2017-12-24 21:02] LABS: Activated Partial Thrombo Time 38.3 sec (24.3-30.1); INR 1.4 Ratio; Prothrombin Time 14.3 sec (9.8-11.6)
[2017-12-24 21:58] LABS: Alanine Aminotransferase 22 U/L (10-53); Albumin 3.5 g/dL (3.4-5.0); Anion Gap 8 meq/L (5-15); Aspartate Aminotransferase 22 U/L (15-37); Blood Urea Nitrogen 16 mg/dL (7-18); Calcium 8.8 mg/dL (8.5-10.1); Chloride 108 meq/L (98-107); Glomerular Filtration Rate 56 mL/min (>89); Glucose,Random 99 mg/dL (74-106); Potassium 3.9 meq/L (3.5-5.1); Sodium 143 meq/L (136-145)
[2017-12-24 22:09] LABS: Alkaline Phosphatase 64 U/L (45-117); Total Protein 6.6 g/dL (6.4-8.2)
[2017-12-24 22:18] LABS: Creatine Kinase 56 U/L (26-192)
[2017-12-24] MEDS ORDERED: Bisacodyl 10 MG Supp RECTAL PRN (23:00)
[2017-12-24] MEDS ORDERED: Temazepam 15 MG Capsule PO PRN (23:00)
--- NOTE | 2017-12-24 23:16 | P.HP ---
History of Present Illness Service: [facility] hospitalist Primary Care Physician: Matteo Nolan MD, PhD Chief Complaint: EVAC-syncope History of Present Illness: The patient is an 87 year old female who presents to the [facility] emergency department with a history of reportedly having dizziness that began approximately 45 minutes prior to ambulance services being called out to her home. The patient had a witnessed episode of a few seconds of syncope while ambulance services were at her side and she was on a monitor. Initially they reported that when they arrived she was in a sinus rhythm in the 80s. They have a strip to confirm this. The patient reports that she does have a history of paroxysmal atrial fibrillation and was actually afib earlier today. Her brazer repair and salvage is Dr. Schwartz. She reports that 2 weeks ago she was started on a new medication, sotalol. While she continued to be monitored by ambulance services the patient was noted to go into A. fib with RVR with a heart rate that maxed out at 136, quickly thereafter the patient became bradycardic and had a syncopal event that lasted for a few seconds. The patient had no loss of bowel or bladder control. The patient had no tongue biting or generalized clonic tonic seizure activity. The patient was placed flat by ambulance services and pacer pads were applied. The patient was started on normal saline IV fluids and given in total approximately 360 mL of normal saline. The patient 's blood sugar was noted to be 122 prior to arrival. The patient arrives awake and alert. She denies having any known recent fevers. She denies having any cough or congestion. She denies having any chest pain, chest pressure, or shortness of breath. She reports that since yesterday she has had some new lower extremity edema that improves with elevating her legs. Otherwise on review of systems, she denies having any neck pain, abdominal pain, vomiting, diarrhea, urinary symptoms, one-sided weakness, facial droop, difficulty with word finding ability, vertigo, or vision changes. In ER had no futher changes on monitor ,will admit to cardiac unit labs are unremarkable,will consult cardiology ? SSS. - Diagnosis (1) Syncope (2) Bradycardia (3) Afib Inpatient Certification: I certify that the inpatient services were ordered in accordance with Medicare regulations governing the order. This includes certification that hospital inpatient services are reasonable and necessary and in the case of services not specified as inpatient-only under 42 CFR 419.22(n), that they are appropriately provided as inpatient services in accordance to with the 2-midnight benchmark under 43 CFR 412.3(e) Estimated Total Length of Stay (Days): 2 Plans for Post Hospital Care: Not yet determined Review of Systems All other systems reviewed negative except as stated in HPI PMFSH - History History Provided By: Patient - Medical History Medical History: Medical History (Last Reviewed 12/24/17 @ 20:43 by Serenity Hampton MD) A-fib Breast CA High cholesterol Hypertension Hypothyroid - Surgical History Surgical History: Surgical History (Last Reviewed 12/24/17 @ 20:43 by Serenity Hampton MD) H/O bilateral mastectomy Hx of tonsillectomy - Tobacco History Smoking Status: Former smoker - Alcohol History How Often Do You Have a Drink Containing Alcohol: Never - Substance Use History Substance History: No History of Abuse - Immunization History Tetanus Immunization: Unsure Hx Influenza Vaccine This Season: No Medications and Allergies Active Medications: Active Medications Acetaminophen (Tylenol) 650 mg PO Q4H PRN PRN Reason: Temp > 100.4 Al Hydroxide/Mg Hydroxide (Milk Of Magnesia Liq) 30 ml PO Q12H PRN PRN Reason: Mild Constipation Amlodipine Besylate (Norvasc) 5 mg PO DAILY ANA Anastrozole (Arimidex) 1 mg PO DAILY ANA Bisacodyl (Dulcolax Supp) 10 mg RECTAL DAILY PRN PRN Reason: SEVERE CONSITIPATION Lactulose (Lactulose Liq) 30 ml PO DAILY PRN PRN Reason: SEVERE CONSITIPATION Rivaroxaban (Xarelto) 20 mg PO DAILY [facility] Senna/Docusate Sodium (Day-Colace) 1 tab PO BID ANA Sennosides (Senokot) 17.2 mg PO Q12H PRN PRN Reason: Moderate Constipation Sodium Chloride (Ns Flush) 2 ml IV.FLUSH UNSCH PRN PRN Reason: FLUSH AFTER USING IV ACCESS Sodium Chloride (Ns Flush) 2 ml IV.FLUSH PRN PRN PRN Reason: FLUSH AFTER USING IV ACCESS Temazepam (Restoril) 15 mg PO HS PRN PRN Reason: INSOMNIA Allergies Allergy/AdvReac Type Severity Reaction Status Date / Time adhesive Allergy Severe JITTERY Unverified 12/24/17 20:29 amlodipine Allergy Severe JITTERY Unverified 12/24/17 20:29 atorvastatin Allergy Severe JITTERY Unverified 12/24/17 20:29 diltiazem Allergy Severe JITTERY Unverified 12/24/17 20:29 isradipine Allergy Severe JITTERY Unverified 12/24/17 20:29 nicardipine Allergy Severe JITTERY Unverified 12/24/17 20:29 nifedipine Allergy Severe JITTERY Unverified 12/24/17 20:29 nimodipine Allergy Severe JITTERY Unverified 12/24/17 20:29 verapamil Allergy Severe JITTERY Unverified 12/24/17 20:29 bupropion Allergy Intermediate JITTERY Unverified 12/24/17 20:29 atropine Allergy Mild rash Unverified 12/24/17 20:29 Horse/Equine Containing Allergy Mild RASH Unverified 12/24/17 20:29 Products hyoscyamine Allergy Mild rash Unverified 12/24/17 20:29 scopolamine Allergy Mild rash Unverified 12/24/17 20:29 tizanidine Allergy Mild lazaro Unverified 12/24/17 20:29 phenobarbital Allergy Unknown rash Unverified 12/24/17 20:29 benazepril AdvReac Severe Cough Unverified 12/24/17 20:29 captopril AdvReac Severe Cough Unverified 12/24/17 20:29 enalaprilat AdvReac Severe Cough Unverified 12/24/17 20:29 fosinopril AdvReac Severe Cough Unverified 12/24/17 20:29 hydrochlorothiazide AdvReac Severe cough Unverified 12/24/17 20:29 lisinopril AdvReac Severe Cough Unverified 12/24/17 20:29 quinapril AdvReac Severe Cough Unverified 12/24/17 20:29 buspirone AdvReac Unknown Irritabilit Unverified 12/24/17 20:29 y/Anxiety celecoxib AdvReac Unknown JITTERY Unverified 12/24/17 20:29 pravastatin AdvReac Unknown myalgias Unverified 12/24/17 20:29 simvastatin AdvReac Unknown myalgias Unverified 12/24/17 20:29 trazodone AdvReac Unknown lazaro Unverified 12/24/17 20:29 BELLADONNA ALKALOIDS Allergy Severe JITTERY Uncoded 12/24/17 20:29 Home Medications Medication Instructions Recorded Confirmed Type Pocket Setter Lockstitch-90 PO DAILY 12/24/17 History Zedia PO DAILY 12/24/17 History amlodipine 5 mg PO DAILY 12/24/17 12/24/17 History anastrozole 1 mg PO DAILY 12/24/17 12/24/17 History magnesium mg PO DAILY 12/24/17 History rivaroxaban [Xarelto] 20 mg PO DAILY 12/24/17 12/24/17 History sotalol PO Q12H 12/24/17 History Exam Vital signs: Vital Signs 12/24/17 20:16 12/24/17 20:30 12/24/17 21:00 Temperature 98.7 F Pulse Rate 78 73 Respiratory Rate 16 16 Blood Pressure 194/80 H 158/71 H Pulse Oximetry 100 100 100 12/24/17 22:00 Temperature Pulse Rate 71 Respiratory Rate 16 Blood Pressure 144/67 H Pulse Oximetry 98 Intake & Output 12/24/17 12/24/17 12/25/17 06:59 18:59 06:59 Weight 63.503 kg Narrative: GENERAL: SKIN: Warm and dry. HEAD: Atraumatic. Normocephalic. EYES: Pupils equal and round. No scleral icterus. No injection or drainage. ENT: No nasal bleeding or discharge. Mucous membranes pink and moist. NECK: Trachea midline. No JVD. CARDIOVASCULAR: Regular rate and rhythm. RESPIRATORY: No accessory muscle use. Clear to auscultation. Breath sounds equal bilaterally. GASTROINTESTINAL: Abdomen soft, non-tender, nondistended. Hepatic and splenic margins not palpable. MUSCULOSKELETAL: Extremities without clubbing, cyanosis, or edema. No obvious deformities. NEUROLOGICAL: Awake and alert. No obvious cranial nerve deficits. Motor grossly within normal limits. Five out of 5 muscle strength in the arms and legs. Normal speech. PSYCHIATRIC: Appropriate mood and affect; insight and judgment normal. Results - Labs CBC & Chem 7: 12/24/17 20:30 12/24/17 21:25 Labs: Laboratory Results - last 24 hr 12/24/17 12/24/17 12/24/17 20:30 20:30 20:30 WBC 9.4 RBC 3.89 L Hgb 12.0 Hct 36.6 MCV 93.9 MCH 30.8 MCHC 32.7 RDW 14.5 Plt Count 269 MPV 9.9 Prelim Diff (Auto) Slide review pending Neut % (Auto) 51.0 Lymph % (Auto) 30.9 [place] % (Auto) 13.8 H Eos % (Auto) 3.7 Baso % (Auto) 0.6 Neut # (Auto) 4.8 Lymph # (Auto) 2.9 [place] # (Auto) 1.3 H Eos # (Auto) 0.4 Baso # (Auto) 0.1 WBC Differential . Diff Scan Auto diff confirmed Differential Comment . PT 14.3 H INR 1.4 APTT 38.3 H Sodium Potassium Chloride Carbon Dioxide Anion Gap BUN Creatinine Estimated GFR Random Glucose Calcium Magnesium Total Bilirubin AST ALT Alkaline Phosphatase Total Creatine Kinase Troponin I B-Natriuretic Peptide 164 H Total Protein Albumin TSH 12/24/17 21:25 WBC RBC Hgb Hct MCV MCH MCHC RDW Plt Count MPV Prelim Diff (Auto) Neut % (Auto) Lymph % (Auto) [place] % (Auto) Eos % (Auto) Baso % (Auto) Neut # (Auto) Lymph # (Auto) [place] # (Auto) Eos # (Auto) Baso # (Auto) WBC Differential Diff Scan Differential Comment PT INR APTT Sodium 143 Potassium 3.9 Chloride 108 H Carbon Dioxide 27.0 Anion Gap 8 BUN 16 Creatinine 0.95 Estimated GFR 56 L Random Glucose 99 Calcium 8.8 Magnesium 2.0 Total Bilirubin 0.2 AST 22 ALT 22 Alkaline Phosphatase 64 Total Creatine Kinase 56 Troponin I Less than 0.02 L B-Natriuretic Peptide Total Protein 6.6 Albumin 3.5 TSH 3.570 - Imaging Impressions Chest X-Ray 12/24/17 20:20 CONCLUSION: 1. No acute abnormality or significant interval change. - ECG Interpretation: no acute changes strip in evac significant bradycardia Caprini VTE Risk Assessment Caprini VTE Risk Assessment: Moderate/High Risk (score >= 2) Caprini Risk Assessment Model: Point Value = 1 Point Value = 2 Point Value = 3 Point Value = 5 Age 41-60 Minor surgery BMI > 25 kg/m2 Swollen legs Varicose veins or History of unexplained or recurrent spontaneous Oral contraceptives or hormone replacement Sepsis (< 1 month) Serious lung disease, including pneumonia (< 1 month) Abnormal pulmonary function Acute myocardial infarction Congestive heart failure (< 1 month) History of inflammatory bowel disease Medical patient at bed rest Age 61-74 Arthroscopic surgery Major open surgery (> 45 min) Laparoscopic surgery (> 45 min) Malignancy Confined to bed (> 72 hours) Immobilizing plaster cast Central venous access Age >= 75 History of VTE Family history of VTE Factor V Leiden Prothrombin [id number] Lupus anticoagulant Anticardiolipin antibodies Elevated serum homocysteine Heparin-induced thrombocytopenia Other congenital or acquired thrombophilia Stroke (< 1 month) Elective arthroplasty Hip, pelvis, or leg fracture Acute spinal cord injury (< 1 month) Prophylaxis Regimen: Total Risk Factor Score Risk Level Prophylaxis Regimen 0-1 Low Early ambulation 2 Moderate Order ONE of the following: *Sequential Compression Device (SCD) *Heparin 5000 units SQ BID 3-4 Higher Order ONE of the following medications: *Heparin 5000 units SQ TID *Enoxaparin/Lovenox 40 mg SQ daily (WT < 150 kg, CrCl > 30 mL/min) *Enoxaparin/Lovenox 30 mg SQ daily (WT < 150 kg, CrCl > 10-29 mL/min) *Enoxaparin/Lovenox 30 mg SQ BID (WT < 150 kg, CrCl > 30 mL/min) AND/OR *Sequential Compression Device (SCD) 5 or more Highest Order ONE of the following medications: *Heparin 5000 units SQ TID (Preferred with Epidurals) *Enoxaparin/Lovenox 40 mg SQ daily (WT < 150 kg, CrCl > 30 mL/min) *Enoxaparin/Lovenox 30 mg SQ daily (WT < 150 kg, CrCl > 10-29 mL/min) *Enoxaparin/Lovenox 30 mg SQ BID (WT < 150 kg, CrCl > 30 mL/min) AND *Sequential Compression Device (SCD) Assessment and Plan - Assessment (1) Syncope Code(s): R55 - Syncope and collapse Status: Acute Plan: related to significant bradycardia patient was started on sotalol will continue at lower dose pending cardiac evaluation. (2) Bradycardia Code(s): R00.1 - Bradycardia, unspecified Status: Acute Plan: as above cardiac consult (3) Afib Code(s): I48.91 - Unspecified atrial fibrillation Status: Acute Plan: continue Xarelto ,lower dose b jeff also patient on zetia will continue - Plan further plan as case develops Code Status: full Discussed Condition With: patient
--- NOTE | 2017-12-25 07:56 | P.CONCA ---
History of Present Illness Primary Care Provider: Matteo Nolan MD, PhD Family Provider: Matteo Nolan MD, PhD Chief Complaint: EVAC-syncope History of Present Illness: 87-year-old female with past medical history of CAD, AIMEE not on CPAP, paroxysmal A. fib, breast cancer, GIB who presented with dizziness and near syncope. Patient has a history of paroxysmal atrial fibrillation for which she is very symptomatic with palpitations. She states that she is having palpitations from about 1 PM to 6 PM yesterday evening. Around 7:30 PM, she started feeling dizzy like she was going to pass out. Symptoms lasted for a few seconds and when they recurred she called EMS. She did not lose consciousness. Per report, the patient was found by EMS to be alternating between normal sinus rhythm and rapid A. fib. It was also mentioned that she may have had a heart rate in the 20s, however no strips are available. For palpitations she has been tried on amiodarone which was not affective and was recently started on sotalol 80 mg twice daily 3 weeks ago. QTC remains normal on EKG. The patient reports that she has had no further palpitations, dizziness, near syncope since admission and telemetry shows patient has remained in NSR with no arrhythmias detected. Review of Systems All other systems reviewed negative except as stated in HPI PMFSH - History History Provided By: Patient - Medical History Medical History: Medical History (Last Updated 12/25/17 @ 07:52 by RICK Lacey) A-fib Breast CA High cholesterol Hypertension Hypothyroid AIMEE (obstructive sleep apnea) - Surgical History Surgical History: Surgical History (Last Reviewed 12/24/17 @ 20:43 by Serenity Hampton MD) H/O bilateral mastectomy Hx of tonsillectomy - Tobacco History Second Hand Smoke Exposure: No Tobacco Use In Past 30 Days: No Smoking Status: Former smoker - Alcohol History How Often Do You Have a Drink Containing Alcohol: Never - Substance Use History Substance History: No History of Abuse - Immunization History Tetanus Immunization: Unsure Hx Influenza Vaccine This Season: No Medications and Allergies Active Medications: Active Medications Acetaminophen (Tylenol) 650 mg PO Q4H PRN PRN Reason: Temp > 100.4 Al Hydroxide/Mg Hydroxide (Milk Of Magnesia Liq) 30 ml PO Q12H PRN PRN Reason: Mild Constipation Amlodipine Besylate (Norvasc) 5 mg PO DAILY ANA Anastrozole (Arimidex) [address] [facility] Bisacodyl (Dulcolax Supp) 10 mg RECTAL DAILY PRN PRN Reason: SEVERE CONSITIPATION Ezetimibe (Zetia) [address] [facility] Lactulose (Lactulose Liq) 30 ml PO DAILY PRN PRN Reason: SEVERE CONSITIPATION Rivaroxaban (Xarelto) [address] [facility] Senna/Docusate Sodium (Day-Colace) [address] [facility] Sennosides (Senokot) 17.2 mg PO Q12H PRN PRN Reason: Moderate Constipation Sodium Chloride (Ns Flush) 2 ml IV.FLUSH PRN PRN PRN Reason: FLUSH AFTER USING IV ACCESS Sodium Chloride (Ns Flush) [address] [facility] Sotalol HCl (Betapace) [address] [facility] Temazepam (Restoril) 15 mg PO HS PRN PRN Reason: INSOMNIA Allergies Allergy/AdvReac Type Severity Reaction Status Date / Time adhesive Allergy Severe JITTERY Unverified 12/24/17 20:29 amlodipine Allergy Severe JITTERY Unverified 12/24/17 20:29 atorvastatin Allergy Severe JITTERY Unverified 12/24/17 20:29 diltiazem Allergy Severe JITTERY Unverified 12/24/17 20:29 isradipine Allergy Severe JITTERY Unverified 12/24/17 20:29 nicardipine Allergy Severe JITTERY Unverified 12/24/17 20:29 nifedipine Allergy Severe JITTERY Unverified 12/24/17 20:29 nimodipine Allergy Severe JITTERY Unverified 12/24/17 20:29 verapamil Allergy Severe JITTERY Unverified 12/24/17 20:29 bupropion Allergy Intermediate JITTERY Unverified 12/24/17 20:29 atropine Allergy Mild rash Unverified 12/24/17 20:29 Horse/Equine Containing Allergy Mild RASH Unverified 12/24/17 20:29 Products hyoscyamine Allergy Mild rash Unverified 12/24/17 20:29 scopolamine Allergy Mild rash Unverified 12/24/17 20:29 tizanidine Allergy Mild lazaro Unverified 12/24/17 20:29 phenobarbital Allergy Unknown rash Unverified 12/24/17 20:29 benazepril AdvReac Severe Cough Unverified 12/24/17 20:29 captopril AdvReac Severe Cough Unverified 12/24/17 20:29 enalaprilat AdvReac Severe Cough Unverified 12/24/17 20:29 fosinopril AdvReac Severe Cough Unverified 12/24/17 20:29 hydrochlorothiazide AdvReac Severe cough Unverified 12/24/17 20:29 lisinopril AdvReac Severe Cough Unverified 12/24/17 20:29 quinapril AdvReac Severe Cough Unverified 12/24/17 20:29 buspirone AdvReac Unknown Irritabilit Unverified 12/24/17 20:29 y/Anxiety celecoxib AdvReac Unknown JITTERY Unverified 12/24/17 20:29 pravastatin AdvReac Unknown myalgias Unverified 12/24/17 20:29 simvastatin AdvReac Unknown myalgias Unverified 12/24/17 20:29 trazodone AdvReac Unknown lazaro Unverified 12/24/17 20:29 BELLADONNA ALKALOIDS Allergy Severe JITTERY Uncoded 12/24/17 20:29 Home Medications Medication Instructions Recorded Confirmed Type Press Tool Maker-90 PO DAILY 12/24/17 History amlodipine 5 mg PO DAILY 12/24/17 12/25/17 History anastrozole 1 mg PO DAILY 12/24/17 12/25/17 History magnesium mg PO DAILY 12/24/17 History rivaroxaban [Xarelto] 20 mg PO DAILY 12/24/17 12/25/17 History sotalol PO Q12H 12/24/17 History Zinc Plus 12/25/17 12/25/17 History ezetimibe [Zetia] PO DAILY 12/25/17 History Exam Vital signs: Vital Signs 12/24/17 20:16 12/24/17 20:30 12/24/17 21:00 Temperature 98.7 F Pulse Rate 78 73 Respiratory Rate 16 16 Blood Pressure 194/80 H 158/71 H Pulse Oximetry 100 100 100 12/24/17 22:00 12/24/17 23:00 12/25/17 00:00 Temperature 97.9 F Pulse Rate 71 71 71 Respiratory Rate 16 16 16 Blood Pressure 144/67 H 153/68 H 157/76 H Pulse Oximetry 98 100 96 12/25/17 00:40 12/25/17 01:08 12/25/17 04:00 Temperature 97.9 F 98 F Pulse Rate 76 74 72 Respiratory Rate 16 16 Blood Pressure 157/76 H 132/62 Pulse Oximetry 96 97 12/25/17 04:12 12/25/17 07:35 Temperature Pulse Rate 65 Respiratory Rate Blood Pressure Pulse Oximetry 96 Intake & Output 12/24/17 12/25/17 12/25/17 18:59 06:59 18:59 Intake Total 240 / 240 Balance 240 / 240 Weight 139 lb 15.896 oz Intake: Oral 240 / 240 Other: # Voids 2 Date of Last Bowel Movement 12/24/17 Weight On Admission 140 lb 0.002 oz Narrative: GENERAL: Well-developed well-nourished. In no acute distress. NECK: No carotid bruits. No JVD. CARDIOVASCULAR: Regular rate and rhythm. No murmur appreciated. RESPIRATORY: No accessory muscle use. Clear to auscultation. Breath sounds equal bilaterally. MUSCULOSKELETAL: No clubbing or cyanosis. No edema. NEUROLOGICAL: Awake and alert. Normal speech. Results 12/24/17 20:30 12/24/17 21:25 Cardiac Enzymes 12/24/17 12/24/17 Range/Units 20:30 21:25 AST 22 (15-37) U/L Troponin I Less than 0.02 L (0.02-0.05) ng/mL B-Natriuretic Peptide 164 H (0-100) pg/mL Coagulation 12/24/17 12/24/17 Range/Units 20:30 20:30 PT 14.3 H (9.8-11.6) sec APTT 38.3 H (24.3-30.1) sec B-Natriuretic Peptide 164 H (0-100) pg/mL CBC 12/24/17 Range/Units 20:30 WBC 9.4 (4.0-11.0) th/mm3 RBC 3.89 L (4.00-5.30) mil/mm3 Hgb 12.0 (11.6-15.3) gm/dL Hct 36.6 (35.0-46.0) % Plt Count 269 (150-450) th/mm3 Neut # (Auto) 4.8 (1.8-7.7) th/mm3 Lymph # (Auto) 2.9 (1.0-4.8) th/mm3 [place] # (Auto) 1.3 H (0.0-0.9) th/mm3 Eos # (Auto) 0.4 (0.0-0.4) th/mm3 Baso # (Auto) 0.1 (0.0-0.2) th/mm3 Comprehensive Metabolic Panel 12/24/17 Range/Units 21:25 Sodium 143 (136-145) meq/L Potassium 3.9 (3.5-5.1) meq/L Chloride 108 H (98-107) meq/L Carbon Dioxide 27.0 (21.0-32.0) meq/L BUN 16 (7-18) mg/dL Creatinine 0.95 (0.50-1.00) mg/dL Calcium 8.8 (8.5-10.1) mg/dL AST 22 (15-37) U/L ALT 22 (10-53) U/L Alkaline Phosphatase 64 (45-117) U/L Total Protein 6.6 (6.4-8.2) g/dL Albumin 3.5 (3.4-5.0) g/dL Intake and Output 12/24/17 12/25/17 12/25/17 22:59 06:59 14:59 Intake Total 240 / 240 Balance 240 / 240 Intake: Oral 240 / 240 Other: # Voids 2 Date of Last Bowel Movement 12/24/17 Weight 140 lb 139 lb 15.896 oz Weight On Admission 140 lb 0.002 oz Assessment and Plan - Plan 87-year-old female with past medical history of CAD, AIMEE not on CPAP, paroxysmal A. fib, breast cancer, GIB who presented with dizziness and near syncope. Patient has a history of paroxysmal atrial fibrillation for which she is very symptomatic with palpitations. She states that she is having palpitations from about 1 PM to 6 PM yesterday evening. Around 7:30 PM, she started feeling dizzy like she was going to pass out. Symptoms lasted for a few seconds and when they recurred, she called EMS. She did not lose consciousness. Per report, the patient was found by EMS to be alternating between normal sinus rhythm and rapid A. fib. It was also mentioned that she may have had a heart rate in the 20s, however no strips are available. Paroxysmal atrial fibrillation: Very symptomatic with palpitations, pharmacologic rhythm control strategy has been poorly effective. With episodes of near syncope, will discontinue sotalol. Start low-dose digoxin for rate control and refer to EP as outpatient. Continue Xarelto for anticoagulation. Patient can be discharged home from cardiology perspective. Discussed Condition With: Patient with RN at bedside, Dr. Schwartz
[2017-12-25] MEDS: Rivaroxaban 20 MG Tablet PO SCH (09:58)
[2017-12-25] MEDS: Anastrozole 1 MG Tablet PO SCH (09:58)
[2017-12-25] MEDS: Ezetimibe 10 MG Tablet PO SCH (09:58)
[2017-12-25] MEDS: amLODIPine 5 MG Tablet PO SCH (09:58)
[2017-12-25] MEDS: Senna/Docusate Sodium 8.6/50 MG Tablet PO SCH ×2 (09:59→21:04)
[2017-12-25] MEDS: Digoxin 125 MCG Tablet PO SCH ×2 (10:00→13:10)
--- NOTE | 2017-12-25 10:30 | P.PNIM ---
Subjective Interval history: pt eager for dc. Physical Exam Vital signs: Vital Signs 12/24/17 20:16 12/24/17 20:30 12/24/17 21:00 Temperature 98.7 F Pulse Rate 78 73 Respiratory Rate 16 16 Blood Pressure 194/80 H 158/71 H Pulse Oximetry 100 100 100 12/24/17 22:00 12/24/17 23:00 12/25/17 00:00 Temperature 97.9 F Pulse Rate 71 71 71 Respiratory Rate 16 16 16 Blood Pressure 144/67 H 153/68 H 157/76 H Pulse Oximetry 98 100 96 12/25/17 00:40 12/25/17 01:08 12/25/17 04:00 Temperature 97.9 F 98 F Pulse Rate 76 74 72 Respiratory Rate 16 16 Blood Pressure 157/76 H 132/62 Pulse Oximetry 96 97 12/25/17 04:12 12/25/17 07:35 12/25/17 08:00 Temperature 98.0 F Pulse Rate 65 77 Respiratory Rate 18 Blood Pressure 159/68 H Pulse Oximetry 96 100 12/25/17 09:00 Temperature 98.0 F Pulse Rate 77 Respiratory Rate 18 Blood Pressure 159/68 H Pulse Oximetry 100 Intake & Output 12/24/17 12/25/17 12/25/17 18:59 06:59 18:59 Intake Total 240 / 240 Balance 240 / 240 Weight 63.5 kg Intake: Oral 240 / 240 Other: # Voids 2 Date of Last Bowel Movement 12/24/17 12/24/17 Weight On Admission 63.503 kg heart reg lung cta abd s/nt ext no edema Results - Labs CBC & Chem 7: 12/24/17 20:30 12/24/17 21:25 Laboratory Results - last 24 hr 12/24/17 12/24/17 12/24/17 20:30 20:30 20:30 WBC 9.4 RBC 3.89 L Hgb 12.0 Hct 36.6 MCV 93.9 MCH 30.8 MCHC 32.7 RDW 14.5 Plt Count 269 MPV 9.9 Prelim Diff (Auto) Slide review pending Neut % (Auto) 51.0 Lymph % (Auto) 30.9 Millard % (Auto) 13.8 H Eos % (Auto) 3.7 Baso % (Auto) 0.6 Neut # (Auto) 4.8 Lymph # (Auto) 2.9 Millard # (Auto) 1.3 H Eos # (Auto) 0.4 Baso # (Auto) 0.1 WBC Differential . Diff Scan Auto diff confirmed Differential Comment . PT 14.3 H INR 1.4 APTT 38.3 H Sodium Potassium Chloride Carbon Dioxide Anion Gap BUN Creatinine Estimated GFR Random Glucose Calcium Magnesium Total Bilirubin AST ALT Alkaline Phosphatase Total Creatine Kinase Troponin I B-Natriuretic Peptide 164 H Total Protein Albumin TSH 12/24/17 21:25 WBC RBC Hgb Hct MCV MCH MCHC RDW Plt Count MPV Prelim Diff (Auto) Neut % (Auto) Lymph % (Auto) Millard % (Auto) Eos % (Auto) Baso % (Auto) Neut # (Auto) Lymph # (Auto) Millard # (Auto) Eos # (Auto) Baso # (Auto) WBC Differential Diff Scan Differential Comment PT INR APTT Sodium 143 Potassium 3.9 Chloride 108 H Carbon Dioxide 27.0 Anion Gap 8 BUN 16 Creatinine 0.95 Estimated GFR 56 L Random Glucose 99 Calcium 8.8 Magnesium 2.0 Total Bilirubin 0.2 AST 22 ALT 22 Alkaline Phosphatase 64 Total Creatine Kinase 56 Troponin I Less than 0.02 L B-Natriuretic Peptide Total Protein 6.6 Albumin 3.5 TSH 3.570 - Imaging Impressions Chest X-Ray 12/24/17 20:20 CONCLUSION: 1. No acute abnormality or significant interval change. Assessment and Plan - Assessment (1) Afib Code(s): I48.91 - Unspecified atrial fibrillation Status: Acute Plan: 1. pt presented with syncope and periods of afib/rvr and sinus arrest/junction rhythm to around 30 discussed with cardiology stop sotalol. start dig consult PT. ambulate today and cont tele. home tomorrow if stable. EPS referral planned. (2) Syncope Code(s): R55 - Syncope and collapse Status: Acute (3) Bradycardia Code(s): R00.1 - Bradycardia, unspecified Status: Acute
--- NOTE | 2017-12-25 16:09 | ECG ---
Date Performed: 12/24/2017 Time Performed: 20:15:57 PTAGE: 87 years EKG: Sinus rhythm POSSIBLE LEFT ATRIAL ENLARGEMENT POSSIBLE RIGHT VENTRICULAR CONDUCTION DELAY SEPTAL MYOCARDIAL INFAR CTION ABNORMAL ECG Since the PREVIOUS TRACING , no significant change noted PREVIOUS TRACIN12/12/2016 09.33.03 DOCTOR: Irma Guidry Interpretating Date/Time 12/25/2017 16:08:24
[2017-12-25] MEDS: Acetaminophen 325 MG Tablet PO PRN (22:48)
--- NOTE | 2017-12-26 07:51 | P.PNCA ---
<Manjeet Breaux - Last Filed: 12/26/17 07:55> Subjective Interval history: Patient complains of lightheadedness and nervousness since starting digoxin. Telemetry shows atrial fibrillation since yesterday evening, rate around 110; no pauses noted. Reports sensation of irregular heartbeat with A. fib in the past, but no associated lightheadedness. Physical Exam Vital signs: Vital Signs 12/25/17 08:00 12/25/17 09:00 12/25/17 10:00 Temperature 98.0 F 98.0 F Pulse Rate 72 80 82 Respiratory Rate 18 18 Blood Pressure 159/68 H 159/68 H Pulse Oximetry 100 100 12/25/17 11:00 12/25/17 12:00 12/25/17 13:00 Temperature 98.3 F Pulse Rate 76 94 H 94 H Respiratory Rate 18 Blood Pressure 143/65 H Pulse Oximetry 95 12/25/17 14:00 12/25/17 15:00 12/25/17 16:00 Temperature 98.4 F Pulse Rate 82 98 H 86 Respiratory Rate 18 Blood Pressure 155/63 H Pulse Oximetry 98 12/25/17 17:00 12/25/17 17:43 12/25/17 18:00 Temperature Pulse Rate 94 H 93 H Respiratory Rate Blood Pressure Pulse Oximetry 98 12/25/17 19:00 12/25/17 20:00 12/25/17 21:00 Temperature 98.8 F Pulse Rate 93 H 98 H 88 Respiratory Rate 18 Blood Pressure 156/65 H Pulse Oximetry 96 12/25/17 22:00 12/25/17 23:00 12/26/17 00:00 Temperature Pulse Rate 95 H 89 82 Respiratory Rate Blood Pressure Pulse Oximetry 12/26/17 01:00 12/26/17 02:00 12/26/17 02:05 Temperature 98.4 F Pulse Rate 78 91 H 92 H Respiratory Rate 18 Blood Pressure 136/54 L Pulse Oximetry 97 12/26/17 03:00 12/26/17 04:00 12/26/17 05:00 Temperature 98.4 F Pulse Rate 82 93 H 92 H Respiratory Rate 16 Blood Pressure 132/58 L Pulse Oximetry 99 12/26/17 06:00 Temperature Pulse Rate 97 H Respiratory Rate Blood Pressure Pulse Oximetry Intake & Output 12/25/17 12/26/17 12/26/17 18:59 06:59 18:59 Intake Total 1200 / 1200 720 / 720 Output Total 1125 / 1125 Balance 1200 / 1200 -405 / -405 Weight 139 lb 15.896 oz Intake: Oral 1200 / 1200 720 / 720 Output: Urine 1125 / 1125 Other: # Voids 4 Date of Last Bowel Movement 12/25/17 12/25/17 # Bowel Movements 1 Narrative: GENERAL: Well-developed well-nourished. In no acute distress. Anxious appearing. NECK: No carotid bruits. No JVD. CARDIOVASCULAR: Irregular rate and rhythm. No murmur appreciated. RESPIRATORY: No accessory muscle use. Clear to auscultation. Breath sounds equal bilaterally. MUSCULOSKELETAL: No clubbing or cyanosis. No edema. NEUROLOGICAL: Awake and alert. Normal speech. Assessment and Plan - Plan 87-year-old female with past medical history of CAD, AIMEE not on CPAP, paroxysmal A. fib, breast cancer, GIB who presented with dizziness and near syncope. Patient has a history of paroxysmal atrial fibrillation for which she is very symptomatic with palpitations. She states that she is having palpitations from about 1 PM to 6 PM yesterday evening. Around 7:30 PM, she started feeling dizzy like she was going to pass out. Symptoms lasted for a few seconds and when they recurred, she called EMS. She did not lose consciousness. Per report, the patient was found by EMS to be alternating between normal sinus rhythm, rapid A. fib, and bradycardia. EMS strips obtained , shows episodes of sinus pauses with junctional escape rhythm. Near-syncope: Probably due to episodes of sinus pauses, which seem to have improved after stopping sotalol. Monitor on telemetry. Paroxysmal atrial fibrillation: Very symptomatic with palpitations/anxiety. Pharmacologic rhythm control strategy has been poorly effective. Started low- dose digoxin for rate control. Likely benefit from ablation, plan for EP referral as outpatient. Continue Xarelto for anticoagulation. Discussed Condition With: Patient, RN, Dr. Villalobos <Timothy Schwartz - Last Filed: 12/26/17 09:18> Physical Exam Vital signs: Vital Signs 12/25/17 10:00 12/25/17 11:00 12/25/17 12:00 Temperature 98.3 F Pulse Rate 82 76 94 H Respiratory Rate 18 Blood Pressure 143/65 H Pulse Oximetry 95 12/25/17 13:00 12/25/17 14:00 12/25/17 15:00 Temperature Pulse Rate 94 H 82 98 H Respiratory Rate Blood Pressure Pulse Oximetry 12/25/17 16:00 12/25/17 17:00 12/25/17 17:43 Temperature 98.4 F Pulse Rate 86 94 H Respiratory Rate 18 Blood Pressure 155/63 H Pulse Oximetry 98 98 12/25/17 18:00 12/25/17 19:00 12/25/17 20:00 Temperature 98.8 F Pulse Rate 93 H 93 H 98 H Respiratory Rate 18 Blood Pressure 156/65 H Pulse Oximetry 96 12/25/17 21:00 12/25/17 22:00 12/25/17 23:00 Temperature Pulse Rate 88 95 H 89 Respiratory Rate Blood Pressure Pulse Oximetry 12/26/17 00:00 12/26/17 01:00 12/26/17 02:00 Temperature Pulse Rate 82 78 91 H Respiratory Rate Blood Pressure Pulse Oximetry 12/26/17 02:05 12/26/17 03:00 12/26/17 04:00 Temperature 98.4 F 98.4 F Pulse Rate 92 H 82 93 H Respiratory Rate 18 16 Blood Pressure 136/54 L 132/58 L Pulse Oximetry 97 99 12/26/17 05:00 12/26/17 06:00 12/26/17 08:00 Temperature 98.1 F Pulse Rate 92 H 97 H 99 H Respiratory Rate 18 Blood Pressure 140/69 Pulse Oximetry 99 Intake & Output 12/25/17 12/26/17 12/26/17 18:59 06:59 18:59 Intake Total 1200 / 1200 720 / 720 Output Total 1125 / 1125 Balance 1200 / 1200 -405 / -405 Weight 63.5 kg Intake: Oral 1200 / 1200 720 / 720 Output: Urine 1125 / 1125 Other: # Voids 4 Date of Last Bowel Movement 12/25/17 12/25/17 12/24/17 # Bowel Movements 1 Assessment and Plan - Plan patient seen and examined. agree with above. back into PAF at 0420 this am. very symptomatic as usual with AF. Amiodarone was not previously effective for rhythm control, sotalol ineffective and may be related to presenting near syncope with sinus arrest and brief junctional escape rhythm. Multaq was cost prohibitive for patient. Hx of CAD is relative contraindication to Class Ic drugs. At this juncture, will consult her previously seen acid wash operator Dr Carvajal to assist with rhythm control strategy as I believe that she requires AF ablation. Will stop amlodipine and start diltiazem 60mg q6hrs (allergy listed and discussed with patient was "jittery", i suspect was from AF and not the medication) and will continue digoxin for now. If HR controlled will d/c with outpatient plan for ablation and if difficult to rate control may require ablation during current hospital stay.
[2017-12-26] MEDS: amLODIPine 5 MG Tablet PO SCH (08:15)
[2017-12-26] MEDS: Thyroid 60 MG Tablet PO SCH (08:15)
[2017-12-26] MEDS: Ezetimibe 10 MG Tablet PO SCH (08:16)
[2017-12-26] MEDS: Anastrozole 1 MG Tablet PO SCH (08:16)
[2017-12-26] MEDS: Rivaroxaban 20 MG Tablet PO SCH (08:17)
[2017-12-26] MEDS: Senna/Docusate Sodium 8.6/50 MG Tablet PO SCH ×2 (08:17→20:26)
[2017-12-26] MEDS: Digoxin 125 MCG Tablet PO SCH (08:17)
[2017-12-26] MEDS ORDERED: Digoxin 125 MCG Tablet PO ONE (09:12)
--- NOTE | 2017-12-26 11:19 | P.PNIM ---
Subjective Interval history: Follow up Near syncope/syncope, atrial fibrillation with sinus arrest and junctional escape rhythm Patient back in A Fib since approximately 4 AM c/o feeling poorly, weak Physical Exam Vital signs: Vital Signs 12/25/17 12:00 12/25/17 13:00 12/25/17 14:00 Temperature 98.3 F Pulse Rate 94 H 94 H 82 Respiratory Rate 18 Blood Pressure 143/65 H Pulse Oximetry 95 12/25/17 15:00 12/25/17 16:00 12/25/17 17:00 Temperature 98.4 F Pulse Rate 98 H 86 94 H Respiratory Rate 18 Blood Pressure 155/63 H Pulse Oximetry 98 12/25/17 17:43 12/25/17 18:00 12/25/17 19:00 Temperature Pulse Rate 93 H 93 H Respiratory Rate Blood Pressure Pulse Oximetry 98 12/25/17 20:00 12/25/17 21:00 12/25/17 22:00 Temperature 98.8 F Pulse Rate 98 H 88 95 H Respiratory Rate 18 Blood Pressure 156/65 H Pulse Oximetry 96 12/25/17 23:00 12/26/17 00:00 12/26/17 01:00 Temperature Pulse Rate 89 82 78 Respiratory Rate Blood Pressure Pulse Oximetry 12/26/17 02:00 12/26/17 02:05 12/26/17 03:00 Temperature 98.4 F Pulse Rate 91 H 92 H 82 Respiratory Rate 18 Blood Pressure 136/54 L Pulse Oximetry 97 12/26/17 04:00 12/26/17 05:00 12/26/17 06:00 Temperature 98.4 F Pulse Rate 93 H 92 H 97 H Respiratory Rate 16 Blood Pressure 132/58 L Pulse Oximetry 99 12/26/17 08:00 12/26/17 09:00 Temperature 98.1 F 98.1 F Pulse Rate 99 H 108 H Respiratory Rate 18 18 Blood Pressure 140/69 140/69 Pulse Oximetry 99 99 Intake & Output 12/25/17 12/26/17 12/26/17 18:59 06:59 18:59 Intake Total 1200 / 1200 720 / 720 Output Total 1125 / 1125 Balance 1200 / 1200 -405 / -405 Weight 63.5 kg Intake: Oral 1200 / 1200 720 / 720 Output: Urine 1125 / 1125 Other: # Voids 4 Date of Last Bowel Movement 12/25/17 12/25/1712/24/18 # Bowel Movements 1 Narrative: GENERAL: This is an 87 year old female patient, in no apparent distress. CARDIOVASCULAR: Irregularly irregular, tachycardic RESPIRATORY: Clear to auscultation. Breath sounds equal bilaterally. GASTROINTESTINAL: Abdomen soft, non-tender, nondistended. Normal active bowel sounds MUSCULOSKELETAL: Extremities without clubbing, cyanosis, or edema. NEURO: Alert & Oriented x4 to person, place, time, situation. Moves all ext x4 Results - Labs CBC & Chem 7: 12/24/17 20:30 12/24/17 21:25 Assessment and Plan - Assessment (1) Afib Code(s): I48.91 - Unspecified atrial fibrillation Status: Acute Plan: Syncope and periods of afib/rvr and sinus arrest/junction rhythm to around [address] Fong discussed with cardiology Dr. Schwartz stop sotalol. start dig patient back in Atrial fibrillation since approximately 4 AM c/o feeling jittery and lightheaded per cardiology stop amiodarone, start diltiazem 60mg q6hrs, continue digoxin for now. If HR controlled will d/c with outpatient plan for ablation and if difficult to rate control may require ablation during current hospital stay. Dr. Schwartz spoke with Dr. Carvajal who will see patient today consult placed to Dr. Carvajal, await further recommendations DVT prophylaxis patient on Xarelto (2) Syncope Code(s): R55 - Syncope and collapse Status: Acute (3) Bradycardia Code(s): R00.1 - Bradycardia, unspecified Status: Acute - Attending Attestation Patient examined. Assessment and plan formulated with Claudia Brewster PA-C. I agree with the above. (2) Syncope Qualifiers: Syncope type: unspecified Qualified Code(s): R55 - Syncope and collapse
[2017-12-26] MEDS: dilTIAZem 60 MG Tablet PO SCH ×3 (12:24→20:26)
[2017-12-26] MEDS ORDERED: WATER IV.SIG ONE ×2 (18:00)
[2017-12-26] MEDS ORDERED: AMIODARONE IV.SIG ONE ×2 (18:00)
[2017-12-26] MEDS ORDERED: DEXTROSE 5% IV.SIG ONE ×2 (18:00)
--- NOTE | 2017-12-26 19:06 | MB ---
cc: Ken Carvajal MD, Edward B DO DATE: 12/26/2017 REASON FOR CONSULTATION: Atrial fibrillation with rapid ventricular response. HISTORY OF PRESENT ILLNESS: Ms. Franklin is an 87-year-old female with a history of atrial fibrillation for years. I did evaluate her around 2014 or 2013 due to atrial fibrillation with a rapid ventricular response. At that time, she refused ablation. She was subsequently taken off anticoagulation due to GI bleeding. She was followed by [facility]. I did see her a second time around 2 years ago. At that time, her atrial fibrillation was difficult to control. Again, she refused ablation. She was managed with sotalol. She was brought to the emergency room and she was having atrial fibrillation with a rapid ventricular response and some compensatory pauses that were very symptomatic. She was admitted. Sotalol was discontinued. She was put on Cardizem and digoxin. Rate was very high. I was consulted for further evaluation and management. The chart was reviewed. The patient was evaluated. ALLERGIES: MULTIPLE. SHE REFERRED ADHESIVES, AMLODIPINE., ATORVASTATIN, DILTIAZEM, HISTAMINES, NICARDIPINE, NIFEDIPINE, NIMODIPINE, VERAPAMIL AND SOME MORE ALLERGIES. REVIEW OF SYSTEMS: She is feeling better right now. Some palpitations but no shortness of breath, no chest pain. PHYSICAL EXAMINATION: GENERAL: Alert, fully oriented. VITAL SIGNS: Blood pressure 146/56, pulse 120, respiratory rate 18. LUNGS: Ventilated. CARDIOVASCULAR: S1, S2, tachycardic, irregular. ABDOMEN: Soft. No masses or bruits. EXTREMITIES: No edema. DIAGNOSTIC DATA: Electrocardiogram indicates sinus rhythm, diffuse ST changes. Telemetry currently shows atrial fibrillation with rapid ventricular response. LABORATORY DATA: Hemoglobin 12.0, white blood cells 9.4. INR 1.4. Potassium 3.9, creatinine 0.95. BNP 164. ASSESSMENT AND RECOMMENDATIONS: Ms. Franklin has had atrial fibrillation for long with multiple encounters before with atrial fibrillation a rapid ventricular response. She was back on Xarelto. At this point, my recommendation for now is rate control. I am going to stop the digoxin. I am going to give her intravenous amiodarone. Continue on p.o. Cardizem. If necessary, if heart rate is not controlled, I will perform a cardioversion in the morning. Based on the results, further decision will be taken. If the patient's heart rate is controlled or back into sinus rhythm, then I will consider atrial fibrillation as an outpatient. Case extensively discussed with her. As mentioned before, this is not my first encounter with Ms. Franklin. MD ROSANA Schaeffer/leah , 05:27 PM , 05:37 PM
[2017-12-27] MEDS: Thyroid 60 MG Tablet PO SCH (07:37)
--- NOTE | 2017-12-27 08:35 | ECG ---
Date Performed: 12/27/2017 Time Performed: 06:44:00 PTAGE: 87 years EKG: Sinus rhythm Lateral T wave changes are nonspecific Borderline ECG PREVIOUS TRACING : 12/24/2017 20.15 No significant change from previous tracing noted. DOCTOR: Luis Ly Interpretating Date/Time 12/27/2017 08:34:19
[2017-12-27] MEDS: Anastrozole 1 MG Tablet PO SCH (09:57)
[2017-12-27] MEDS: Ezetimibe 10 MG Tablet PO SCH (09:57)
[2017-12-27] MEDS: dilTIAZem 60 MG Tablet PO SCH ×3 (09:57→17:28)
[2017-12-27] MEDS: Rivaroxaban 20 MG Tablet PO SCH (09:58)
[2017-12-27] MEDS: Amiodarone 200 MG Tablet PO SCH (09:59)
[2017-12-27] MEDS: Senna/Docusate Sodium 8.6/50 MG Tablet PO SCH ×2 (10:02→20:10)
[2017-12-27] MEDS: Acetaminophen 325 MG Tablet PO PRN ×3 (10:08→15:33)
--- NOTE | 2017-12-27 18:47 | P.PNIM ---
Subjective Interval history: Patient sitting up in chair watching TV reports feeling much better back in SR Physical Exam Vital signs: Vital Signs 12/26/17 19:00 12/26/17 19:21 12/26/17 20:00 Temperature 98.4 F Pulse Rate 97 H 76 91 H Respiratory Rate 18 Blood Pressure 142/69 H Pulse Oximetry 98 98 12/26/17 21:00 12/26/17 22:00 12/26/17 23:00 Temperature Pulse Rate 77 79 79 Respiratory Rate Blood Pressure Pulse Oximetry 12/26/17 23:14 12/27/17 00:00 12/27/17 01:00 Temperature 98.2 F Pulse Rate 88 76 74 Respiratory Rate 17 Blood Pressure 153/68 H Pulse Oximetry 97 12/27/17 02:00 12/27/17 03:00 12/27/17 03:43 Temperature 98.2 F Pulse Rate 72 75 73 Respiratory Rate 17 Blood Pressure 139/60 Pulse Oximetry 96 12/27/17 04:00 12/27/17 05:00 12/27/17 06:07 Temperature Pulse Rate 72 73 69 Respiratory Rate Blood Pressure Pulse Oximetry 12/27/17 07:00 12/27/17 11:00 12/27/17 12:00 Temperature 97.4 F L 98.1 F Pulse Rate 105 H 88 78 Respiratory Rate 12 12 Blood Pressure 156/65 H 140/60 Pulse Oximetry 78 L 98 12/27/17 13:00 12/27/17 13:08 12/27/17 14:00 Temperature Pulse Rate 96 H 78 Respiratory Rate Blood Pressure Pulse Oximetry 96 12/27/17 15:00 12/27/17 16:00 12/27/17 17:00 Temperature 97.9 F Pulse Rate 89 83 84 Respiratory Rate 16 Blood Pressure 160/63 H Pulse Oximetry 97 12/27/17 18:00 Temperature Pulse Rate 79 Respiratory Rate Blood Pressure Pulse Oximetry Intake & Output 12/26/17 12/27/17 12/27/17 18:59 06:59 18:59 Intake Total 1140 / 1140 578 / 578 1060 / 1060 Output Total 1100 / 1100 400 / 400 800 / 800 Balance 40 / 40 178 / 178 260 / 260 Weight 63.1 kg Intake: IV 338 / 338 100 / 100 Cordarone Inj 450 MG In D5W Inj 238 / 238 100 / 100 241 ML @ 1 MG/MIN 33.33 mls/hr IV.CONT TITRATE PRN Rx#: [id number] Cordarone Inj 300 MG In D5W Inj 100 / 100 97 ML @ 100 mls/hr IV.SIG ONCE ONE Rx#:[id number] Oral 1140 / 1140 240 / 240 960 / 960 Output: Urine 1100 / 1100 400 / 400 800 / 800 Other: Date of Last Bowel Movement 12/26/17 12/26/17 12/26/17 # Bowel Movements 2 Narrative: GENERAL: This is an 87 year old female patient, in no apparent distress. CARDIOVASCULAR: Regular rate and rhythm RESPIRATORY: Clear to auscultation. Breath sounds equal bilaterally. GASTROINTESTINAL: Abdomen soft, non-tender, nondistended. Normal active bowel sounds MUSCULOSKELETAL: Extremities without clubbing, cyanosis, or edema. NEURO: Alert & Oriented x4 to person, place, time, situation. Moves all ext x4 Results - Labs CBC & Chem 7: 12/24/17 20:30 12/24/17 21:25 Assessment and Plan - Assessment (1) Afib Code(s): I48.91 - Unspecified atrial fibrillation Status: Acute Plan: Syncope and periods of afib/rvr and sinus arrest/junction rhythm to around [address] Fong discussed with cardiology Dr. Schwartz stop sotalol. start dig patient back in Atrial fibrillation since approximately 4 AM c/o feeling jittery and lightheaded per cardiology stop amiodarone, start diltiazem 60mg q6hrs, continue digoxin for now. If HR controlled will d/c with outpatient plan for ablation and if difficult to rate control may require ablation during current hospital stay. Dr. Schwartz spoke with Dr. Carvajal who will see patient today consult placed to Dr. Carvajal, Patient converted to SR with Amiodarone drip -> converted to PO patient also on Cardizem 60 mg PO QID -> transition to long acting tomorrow AM Will monitor patient overnight and plan to DC in AM DVT prophylaxis patient on Xarelto (2) Syncope Code(s): R55 - Syncope and collapse Status: Acute (3) Bradycardia Code(s): R00.1 - Bradycardia, unspecified Status: Acute - Attending Attestation Patient examined. Assessment and plan formulated with Claudia Brewster PA-C. I agree with the above. (2) Syncope Qualifiers: Syncope type: unspecified Qualified Code(s): R55 - Syncope and collapse
--- NOTE | 2017-12-27 18:55 | P.DS ---
<Claudia Brewster W - Last Filed: 12/27/17 18:55> Date of admission: 12/24/17 22:49 Primary care physician: Matteo Nolan MD, PhD Attending physician on discharge: Gopi Fong Anticipated date of discharge: 12/28/17 Brief History from admission: The patient is an 87 year old female who presents to the [facility] emergency department with a history of reportedly having dizziness that began approximately 45 minutes prior to ambulance services being called out to her home. The patient had a witnessed episode of a few seconds of syncope while ambulance services were at her side and she was on a monitor. Initially they reported that when they arrived she was in a sinus rhythm in the 80s. They have a strip to confirm this. The patient reports that she does have a history of paroxysmal atrial fibrillation and was actually afib earlier today. 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 She reports that 2 weeks ago she was started on a new medication, sotalol. While she continued to be monitored by ambulance services the patient was noted to go into A. fib with RVR with a heart rate that maxed out at 136, quickly thereafter the patient became bradycardic and had a syncopal event that lasted for a few seconds. The patient had no loss of bowel or bladder control. The patient had no tongue biting or generalized clonic tonic seizure activity. The patient was placed flat by ambulance services and pacer pads were applied. The patient was started on normal saline IV fluids and given in total approximately 360 mL of normal saline. The patient 's blood sugar was noted to be 122 prior to arrival. The patient arrives awake and alert. She denies having any known recent fevers. She denies having any cough or congestion. She denies having any chest pain, chest pressure, or shortness of breath. She reports that since yesterday she has had some new lower extremity edema that improves with elevating her legs. Otherwise on review of systems, she denies having any neck pain, abdominal pain, vomiting, diarrhea, urinary symptoms, one-sided weakness, facial droop, difficulty with word finding ability, vertigo, or vision changes. In ER had no futher changes on monitor ,will admit to cardiac unit labs are unremarkable,will consult cardiology ? SSS. DS: Diagnosis - Discharge Diagnosis (1) Afib Status: Acute (2) Syncope Status: Acute (3) Bradycardia Status: Acute DS: Medications - Discharge Medications Prescriptions: amiodarone 200 mg PO DAILY 30 Days #30 tab amiodarone 400 mg PO DAILY 7 Days #14 tab diltiazem HCl 240 mg PO DAILY 30 Days #30 cap DS: Summary Hospital Course: Syncope and periods of afib/rvr and sinus arrest/junction rhythm to around [address] Fong discussed with cardiology Dr. Schwartz stop sotalol. start dig patient back in Atrial fibrillation since approximately 4 AM c/o feeling jittery and lightheaded per cardiology stop amiodarone, start diltiazem 60mg q6hrs, continue digoxin for now. If HR controlled will d/c with outpatient plan for ablation and if difficult to rate control may require ablation during current hospital stay. Dr. Schwartz spoke with Dr. Carvajal who will see patient today consult placed to Dr. Carvajal, Patient converted to SR with Amiodarone drip -> converted to PO patient also on Cardizem 60 mg PO QID -> transition to long acting tomorrow AM Will monitor patient overnight and plan to DC in AM DVT prophylaxis patient on Xarelto - Time Spent with Patient Total time spent providing and/or coordinating discharge services: Greater than 30 minutes - Quality: VTE Deep Vein Thrombosis/Pulmonary Embolism Present on Admission: No Exam Vital signs: Vital Signs 12/26/17 19:00 12/26/17 19:21 12/26/17 20:00 Temperature 98.4 F Pulse Rate 97 H 76 91 H Respiratory Rate 18 Blood Pressure 142/69 H Pulse Oximetry 98 98 12/26/17 21:00 12/26/17 22:00 12/26/17 23:00 Temperature Pulse Rate 77 79 79 Respiratory Rate Blood Pressure Pulse Oximetry 12/26/17 23:14 12/27/17 00:00 12/27/17 01:00 Temperature 98.2 F Pulse Rate 88 76 74 Respiratory Rate 17 Blood Pressure 153/68 H Pulse Oximetry 97 12/27/17 02:00 12/27/17 03:00 12/27/17 03:43 Temperature 98.2 F Pulse Rate 72 75 73 Respiratory Rate 17 Blood Pressure 139/60 Pulse Oximetry 96 12/27/17 04:00 12/27/17 05:00 12/27/17 06:07 Temperature Pulse Rate 72 73 69 Respiratory Rate Blood Pressure Pulse Oximetry 12/27/17 07:00 12/27/17 11:00 12/27/17 12:00 Temperature 97.4 F L 98.1 F Pulse Rate 105 H 88 78 Respiratory Rate 12 12 Blood Pressure 156/65 H 140/60 Pulse Oximetry 78 L 98 12/27/17 13:00 12/27/17 13:08 12/27/17 14:00 Temperature Pulse Rate 96 H 78 Respiratory Rate Blood Pressure Pulse Oximetry 96 12/27/17 15:00 12/27/17 16:00 12/27/17 17:00 Temperature 97.9 F Pulse Rate 89 83 84 Respiratory Rate 16 Blood Pressure 160/63 H Pulse Oximetry 97 12/27/17 18:00 Temperature Pulse Rate 79 Respiratory Rate Blood Pressure Pulse Oximetry Intake & Output 12/26/17 12/27/17 12/27/17 18:59 06:59 18:59 Intake Total 1140 / 1140 578 / 578 1060 / 1060 Output Total 1100 / 1100 400 / 400 800 / 800 Balance 40 / 40 178 / 178 260 / 260 Weight 63.1 kg Intake: IV 338 / 338 100 / 100 Cordarone Inj 450 MG In D5W Inj 238 / 238 100 / 100 241 ML @ 1 MG/MIN 33.33 mls/hr IV.CONT TITRATE PRN Rx#: [id number] Cordarone Inj 300 MG In D5W Inj 100 / 100 97 ML @ 100 mls/hr IV.SIG ONCE ONE Rx#:[id number] Oral 1140 / 1140 240 / 240 960 / 960 Output: Urine 1100 / 1100 400 / 400 800 / 800 Other: Date of Last Bowel Movement 12/26/17 12/26/17 12/26/17 # Bowel Movements 2 Narrative: GENERAL: This is an 87 year old female patient, in no apparent distress. CARDIOVASCULAR: Regular rate and rhythm RESPIRATORY: Clear to auscultation. Breath sounds equal bilaterally. GASTROINTESTINAL: Abdomen soft, non-tender, nondistended. Normal active bowel sounds MUSCULOSKELETAL: Extremities without clubbing, cyanosis, or edema. NEURO: Alert & Oriented x4 to person, place, time, situation. Moves all ext x4 Results Procedures completed during hospitalization: none - Impressions ITS Impressions Chest X-Ray 12/24/17 20:20 CONCLUSION: 1. No acute abnormality or significant interval change. <Gopi Fong - Last Filed: 01/02/18 11:02> Date of admission: 12/24/17 22:49 Primary care physician: Matteo Nolan MD, PhD DS: Diagnosis - Discharge Diagnosis (1) Afib Status: Acute (2) Syncope Status: Acute (3) Bradycardia Status: Acute DS: Summary Hospital Course: Patient examined. Assessment and plan formulated with Claudia Brewster PA-C. I agree with the above. - Time Spent with Patient Total time spent providing and/or coordinating discharge services: Results - Impressions ITS Impressions Chest X-Ray 12/24/17 20:20 CONCLUSION: 1. No acute abnormality or significant interval change. Discharge Plan - Discharge Order Discharge Orders: Discharge Order (Routine); Ordered 12/28/17 Ordered By: Claudia Brewster - Discharge Details Anticipated Discharge Date: 12/28/17 - Physicians Team Primary Care Provider: Matteo Nolan Attending Provider: Gopi Fong Other Providers: Timothy Schwartz DO ; Ken Carvajal MD
[2017-12-28] MEDS: Thyroid 60 MG Tablet PO SCH (06:31)
[2017-12-28] MEDS ORDERED: dilTIAZem CD 240 MG Capsule PO SCH (09:00)
[2017-12-28 09:06] VITALS: BP 150/71; RESP 12; TEMP 99.6; O2SAT 100
[2017-12-28] MEDS: Amiodarone 200 MG Tablet PO SCH (09:44)
[2017-12-28] MEDS: Ezetimibe 10 MG Tablet PO SCH (09:45)
[2017-12-28] MEDS: Senna/Docusate Sodium 8.6/50 MG Tablet PO SCH (09:45)
[2017-12-28] MEDS: Anastrozole 1 MG Tablet PO SCH (09:45)
[2017-12-28] MEDS: Rivaroxaban 20 MG Tablet PO SCH (09:46)
[2017-12-28 10:59] VITALS: PULSE 98
[2018-01-03] MEDS ORDERED: Amiodarone 200 MG Tablet PO SCH (09:00)
== END 2017-12-28 10:15 | disposition home or self-care (01) ==
LOC: NEPE 20:11 → NEDA 22:49 → HCIS 12-25 00:28
PROVIDERS: ADMIT Hospitalist; ATTEND Hospitalist